=== PATIENT | female | born 1940 | race Caucasian/White ===

== ENCOUNTER 2020-11-14 15:21 | Observation (INO) | payer OTHER, SELFPAY ==
[2020-11-14 17:00] LABS: Absolute Lymphocytes (CBC) 2.5 K/uL (0.7-4.9); Basophils % 0.6 % (0-1.3); Hematocrit 32.2 % (36.0-45.0); Lymphocytes % 30.4 % (15.3-44.8); MPV 7.4 fL (7.6-11.3); RBC Red Blood Cell Count 3.67 M/uL (3.86-4.86)
[2020-11-14 17:13] LABS: ALT/SGPT 14 U/L (12-78); AST/SGOT 13 U/L (15-37); Albumin 3.6 g/dL (3.4-5.0); Alkaline Phosphatase 79 U/L (45-117); BUN Blood Urea Nitrogen 20 mg/dL (7-18); Bicarbonate 28 mmol/L (21-32); Bilirubin Direct < 0.1 mg/dL (0-0.2); Bilirubin Total 0.3 mg/dL (0.2-1.0); Glucose Level 112 mg/dL (74-106); Magnesium 2.4 mg/dL (1.8-2.4); NT PRO-BNP 346 pg/mL (<450); Potassium 4.7 mmol/L (3.5-5.1); Protein, Total 7.4 g/dL (6.4-8.2); Sodium Level 141 mmol/L (136-145); Troponin (Emerg Dept Use Only) < 0.02 ng/mL (0.0-0.045)
[2020-11-14] MEDS ORDERED: FENTANYL CITR 100 MCG/2 ML ONE (17:26)
[2020-11-14] MEDS ORDERED: NA CHLORIDE 0.9% 500 ML ONE (17:26)
[2020-11-14] MEDS ORDERED: ONDANSETRON 4 MG/2 ML VIAL ONE (17:26)
[2020-11-14] MEDS ORDERED: LORazepam 2 MG/ML VIAL ONE (18:09)
--- NOTE | 2020-11-14 18:35 | ER ---
Nurse's Notes [facility] Name: Sasha Asif Age: 79 yrs Sex: Female : 1940 Arrival Date: 11/14/2020 Time: 15:27 Bed 20 Private MD: Diagnosis: Chest pain, unspecified;Acute kidney failure, unspecified Presentation: 11/14 15:35 Chief complaint: Patient states: Pain started in neck area, radiates into chest and ll1 entire back 30 min [employer]. Sudden onset after walking to vehicle. + diaphoresis. Just had some outpatient tests ran. Coronavirus screen: Vaccine status: Patient reports receiving the 1st dose of the Covid vaccine. Client denies travel out of the [place] in the last 14 days. At this time, the client does not indicate any symptoms associated with coronavirus-19. Ebola Screen: Patient denies travel to an Ebola-affected area in the 21 days before illness onset. Initial Sepsis Screen: Does the patient meet any 2 criteria? RR > 20 per min. HR > 90 bpm. Yes Does the patient have a suspected source of infection? No. Patient's initial sepsis screen is negative. Risk Assessment: Do you want to hurt yourself or someone else? Patient reports no desire to harm self or others. Onset of symptoms was November 14, 2020. 15:35 Method Of Arrival: Wheelchair ll1 15:35 Acuity: LIZETTE 2 ll1 Triage Assessment: 15:45 General: Appears distressed, uncomfortable, Behavior is cooperative, appropriate for bp age, anxious. Pain: Complains of pain in chest and neck. EENT: No deficits noted. Neuro: No deficits noted. Cardiovascular: No deficits noted. Reports chest pain. Respiratory: No deficits noted. GI: No signs and/or symptoms were reported involving the gastrointestinal system. : No signs and/or symptoms were reported regarding the genitourinary system. Derm: No deficits noted. Musculoskeletal: No deficits noted. Historical: - Allergies: 15:37 No Known Allergies; ll1 - PMHx: 15:37 Hypertensive disorder; ll1 - Immunization history:: Client reports receiving the Cal \T\ Cal single-dose vaccine. - Social history:: Smoking status: Patient reports the use of cigarette tobacco products, smokes one-half pack cigarettes per day. Screenin:30 Abuse screen: Denies threats or abuse. Denies injuries from another. Nutritional bp screening: No deficits noted. Tuberculosis screening: No symptoms or risk factors identified. Fall Risk None identified. Assessment: 15:45 General: SEE TRIAGE NOTE. bp 17:57 Reassessment: No changes from previously documented assessment. Patient and/or family bp updated on plan of care and expected duration. Pain level reassessed. 18:47 Reassessment: No changes from previously documented assessment. Patient and/or family bp updated on plan of care and expected duration. Pain level reassessed. ADMIT INITIATED Patient states symptoms have improved. Vital Signs: 15:00 BP 106 / 44; Pulse 51; Resp 17; Pulse Ox 100% ; bp 15:35 BP 97 / 42; Pulse 106; Resp 26; Temp 97.4; Pulse Ox 100% on R/A; Weight 49.9 kg; Height ll1 4 ft. 10 in. (147.32 cm); Pain 10/10; 16:00 BP 99 / 57; Pulse 52; Resp 16; Pulse Ox 97% ; bp 17:00 BP 115 / 61; Pulse 58; Resp 17; Pulse Ox 96% ; bp 18:47 BP 131 / 35; Pulse 92; Resp 14; Pulse Ox 95% ; bp 20:51 BP 135 / 99 LA Sitting (auto/reg); Pulse 65; Resp 18; Temp 98.8; Pulse Ox 97% on R/A; sj1 Pain 6/10; 15:35 Body Mass Index 22.99 (49.90 kg, 147.32 cm) ll1 ED Course: 15:27 Patient arrived in ED. ja2 15:30 Patient has correct armband on for positive identification. Bed in low position. Call bp light in reach. Side rails up X2. Adult w/ patient. potline monitor on. Pulse ox on. NIBP on. 15:34 Hermelindo Denney, TALI is Primary Nurse. bp 15:37 Triage completed. ll1 15:38 Arm band placed on Patient placed in an exam room, on a stretcher. ll1 15:49 Harrison Jones PA is PHCP. cp 15:49 Naveed Birmingham MD is Attending Physician. cp 16:25 COVID swab sent to lab. mb4 16:50 Inserted saline lock: 22 gauge in right forearm, using aseptic technique. Blood bp collected. 17:56 XRAY Chest (1 view) In Process Unspecified. EDMS 18:27 CT Chest Wo Con In Process Unspecified. EDMS 18:34 Nadeem Mccall PA is Hospitalizing Provider. cp 20:04 No provider procedures requiring assistance completed. sj1 20:05 Patient maintains SpO2 saturation greater than 95% on room air. sj1 20:23 Leo Ludwig is Hospitalizing Provider. cp Administered Medications: 16:50 Drug: NS 0.9% 500 ml Route: IV; Rate: bolus; Site: right forearm; bp 16:50 Drug: fentaNYL (PF) 25 mcg Route: IVP; Site: right forearm; bp 17:51 Follow up: Response: No adverse reaction bp 16:50 Drug: Zofran (Ondansetron) 4 mg Route: IVP; Site: right forearm; bp 17:51 Follow up: Response: No adverse reaction bp 17:45 Drug: Ativan (LORazepam) 0.5 mg Route: IVP; Site: right forearm; bp 18:48 Follow up: Response: Anxiety decreased bp Outcome: 18:35 Decision to Hospitalize by Provider. cp 21:21 Patient left the ED. sj1 Signatures: Dispatcher [employer] EDMS Harrison Jones PA PA cp Hermelindo Denney, RN RN bp Orquidea Barnard mb4 Amber Wilson, RN RN ll1 Lia Saucedo Sade, RN RN sj1
--- NOTE | 2020-11-14 18:35 | EDPHYS ---
Physician Documentation [facility] Name: Sasha Asif Age: 79 yrs Sex: Female : 1940 Arrival Date: 11/14/2020 Time: 15:27 Bed 20 Private MD: ED Physician Naveed Birmingham HPI: 11/14 16:20 This 79 yrs old Female presents to ER via Wheelchair with complaints of Chest Pain, cp Shortness Of Breath. 16:20 The patient or guardian reports chest pain that is located primarily in the anterior cp chest wall, bilaterally. 16:20 Onset: suddenly, just prior to arrival. The pain radiates to back. The chest pain is cp described as aching. Duration: The patient or guardian reports a single episode, that is still ongoing, and unchanged. Patient reports she was walking to car and started to have sudden pain in neck that moved down to chest and now radiates to back. Historical: - Allergies: 15:37 No Known Allergies; ll1 - PMHx: 15:37 Hypertensive disorder; ll1 - Immunization history:: Client reports receiving the Cal \T\ Cal single-dose vaccine. - Social history:: Smoking status: Patient reports the use of cigarette tobacco products, smokes one-half pack cigarettes per day. ROS: 16:25 Constitutional: Negative for body aches, chills, fever, poor PO intake. cp 16:25 Eyes: Negative for injury, pain, redness, and discharge. cp 16:25 Neck: Positive for pain at rest, Negative for injury or acute deformity. 16:25 Cardiovascular: Positive for chest pain, Negative for edema, palpitations. 16:25 Respiratory: Negative for cough, shortness of breath, wheezing. 16:25 Abdomen/GI: Positive for abdominal pain, Negative for nausea, vomiting, and diarrhea. 16:25 Back: Positive for radiated pain. 16:25 Neuro: Negative for altered mental status, dizziness, headache, numbness, weakness. 16:25 All other systems are negative. Exam: 16:30 Constitutional: The patient appears in no acute distress, alert, awake, cp non-diaphoretic, non-toxic, well developed, well nourished, anxious, uncomfortable. 16:30 Head/Face: Normocephalic, atraumatic. cp 16:30 Eyes: Periorbital structures: appear normal, Conjunctiva: normal, no exudate, no injection, Sclera: no appreciated abnormality, Lids and lashes: appear normal, bilaterally. 16:30 ENT: External ear(s): are unremarkable, Nose: is normal, Mouth: Lips: moist, Oral mucosa: moist, Posterior pharynx: Airway: no evidence of obstruction, patent. 16:30 Neck: ROM/movement: is normal, is supple, no meningismus, no nuchal rigidity, Lymph nodes: no appreciated lymphadenopathy. 16:30 Chest/axilla: Inspection: normal, Palpation: is normal, no crepitus, no tenderness. 16:30 Cardiovascular: Rate: bradycardic, Rhythm: regular, Edema: is not appreciated, JVD: is not appreciated. 16:30 Respiratory: the patient does not display signs of respiratory distress, Respirations: normal, no use of accessory muscles, no retractions, labored breathing, is not present, Breath sounds: are clear throughout, no decreased breath sounds, no stridor, no wheezing. 16:30 Abdomen/GI: Inspection: abdomen appears normal, Bowel sounds: active, all quadrants, Palpation: soft, in all quadrants, mild abdominal tenderness, in all quadrants. 16:30 Back: vertebral tenderness, is not appreciated. 16:30 Skin: cellulitis, is not appreciated, no rash present. 16:30 Neuro: Orientation: to person, place \T\ time. Mentation: is normal, Motor: moves all fours, strength is normal, Sensation: is normal. 17:29 ECG was reviewed by the Attending Physician. cp Vital Signs: 15:00 BP 106 / 44; Pulse 51; Resp 17; Pulse Ox 100% ; bp 15:35 BP 97 / 42; Pulse 106; Resp 26; Temp 97.4; Pulse Ox 100% on R/A; Weight 49.9 kg; Height ll1 4 ft. 10 in. (147.32 cm); Pain 10/10; 16:00 BP 99 / 57; Pulse 52; Resp 16; Pulse Ox 97% ; bp 17:00 BP 115 / 61; Pulse 58; Resp 17; Pulse Ox 96% ; bp 18:47 BP 131 / 35; Pulse 92; Resp 14; Pulse Ox 95% ; bp 20:51 BP 135 / 99 LA Sitting (auto/reg); Pulse 65; Resp 18; Temp 98.8; Pulse Ox 97% on R/A; sj1 Pain 6/10; 15:35 Body Mass Index 22.99 (49.90 kg, 147.32 cm) ll1 MDM: 15:50 Patient medically screened. cp 20:05 Data reviewed: vital signs, nurses notes, lab test result(s), EKG, radiologic studies, cp CT scan, plain films. 11/14 16:00 Order name: Basic Metabolic Panel; Complete Time: 17:20 cp 11/14 17:20 Interpretation: Normal except: GLUC 112; BUN 20; CRE 2.18; GFR 22; CA 8.4. cp 11/14 16:00 Order name: CBC with Diff; Complete Time: 17:42 cp 11/14 20:04 Interpretation: Normal except: RBC 3.67; HGB 10.8; HCT 32.2; RDW 15.8; MPV 7.4. cp 11/14 16:00 Order name: LFT's; Complete Time: 17:20 cp 11/14 16:00 Order name: Magnesium; Complete Time: 17:20 cp 11/14 16:00 Order name: NT PRO-BNP; Complete Time: 17:20 cp 11/14 16:00 Order name: PT-INR; Complete Time: 17:20 cp 11/14 16:00 Order name: Troponin (emerg Dept Use Only); Complete Time: 17:20 cp 11/14 16:00 Order name: XRAY Chest (1 view); Complete Time: 19:57 cp 11/14 16:00 Order name: Urine Microscopic Only cp 11/14 17:31 Order name: SARS-COV-2 RT PCR; Complete Time: 19:57 EDMS 11/14 17:43 Order name: CT Chest Wo Con; Complete Time: 19:57 cp 11/14 20:33 Order name: Urine Dipstick-Ancillary EDMS 11/14 16:00 Order name: EKG; Complete Time: 16:01 cp 11/14 16:00 Order name: Cardiac monitoring; Complete Time: 16:21 cp 11/14 16:00 Order name: EKG - Nurse/Tech; Complete Time: 17:38 cp 11/14 16:00 Order name: IV Saline Lock; Complete Time: 17:10 cp 11/14 16:00 Order name: Labs collected and sent; Complete Time: 17:10 cp 11/14 16:00 Order name: O2 Per Protocol; Complete Time: 16: cp 11/14 16:00 Order name: O2 Sat Monitoring; Complete Time: 16: cp 11/14 19:26 Order name: CONS Physician Consult EDMS EC:29 Rate is 53 beats/min. Rhythm is regular. MS interval is normal. QRS interval is normal. cp QT interval is normal. T waves are Inverted in leads aVL, V2. Interpreted by me. Reviewed by me. Administered Medications: 16:50 Drug: NS 0.9% 500 ml Route: IV; Rate: bolus; Site: right forearm; bp 16:50 Drug: fentaNYL (PF) 25 mcg Route: IVP; Site: right forearm; bp 17:51 Follow up: Response: No adverse reaction bp 16:50 Drug: Zofran (Ondansetron) 4 mg Route: IVP; Site: right forearm; bp 17:51 Follow up: Response: No adverse reaction bp 17:45 Drug: Ativan (LORazepam) 0.5 mg Route: IVP; Site: right forearm; bp 18:48 Follow up: Response: Anxiety decreased bp Disposition: 11/15 08:04 Co-signature as Attending Physician, Naveed Birmingham MD I agree with the assessment and rn plan of care. Attestation: The patient's history, exam findings, diagnostics, and a summary of any interventions or procedures was reviewed in detail with Harrison CHAN. Disposition Summary: 11/14/20 18:35 Hospitalization Ordered Hospitalization Status: Observation cp Location: Telemetry/MedSurg (observation) cp Condition: Stable cp Problem: new cp Symptoms: have improved cp Bed/Room Type: Standard cp Room Assignment: 213(11/14/20 19:58) Provider: Leo Ludwig(11/14/20 20:23) cp Diagnosis - Chest pain, unspecified cp - Acute kidney failure, unspecified cp Forms: - Medication Reconciliation Form cp - SBAR form cp Signatures: Dispatcher [employer] EDDE Delia Blevins RN RN mw Nieto, Roman, MD MD rn Page, Corey, PA PA cp Hermelindo Denney RN RN bp Lewis, Lynsay, RN RN ll1 Corrections: (The following items were deleted from the chart) 10/08 17:25 16:01 Angio Aorta For Dissection+CT.RAD.BRZ ordered. EDMS EDMS 17:31 16:10 CORONAVIRUS+MR.LAB.BRZ ordered. EDMS EDMS 19:58 18:35 cp mw 20:23 18:35 Nadeem Mccall cp cp
--- NOTE | 2020-11-14 18:54 | RAD REPORT ---
EXAM DESCRIPTION: CT - Thorax Wo Con - 11/14/2020 6:28 pm CLINICAL HISTORY: Chest pain COMPARISON: November 14, 2020 chest x-ray TECHNIQUE: Computed axial tomography of the chest was obtained. Contrast was not requested. All CT scans are performed using dose optimization technique as appropriate and may include automated exposure control or mA/KV adjustment according to patient size. FINDINGS: The evaluation of mediastinum, monica and vessels is limited secondary to lack of IV contras t administration. Minimal scarring or subsegmental atelectasis within the left lower lobe. No mediastinal or hilar lymphadenopathy is seen. A pleural effusion is not present. Postsurgical changes involve the chest. Pacemaker leads in place. Thoracoabdominal aortic AP diameter of 3 centimeters. Descending thoracic aorta AP diameter of 3 cent imeters 2.5 centimeter hepatic cyst IMPRESSION: 3 centimeter thoracoabdominal aortic aneurysm
--- NOTE | 2020-11-14 19:26 | RAD REPORT ---
EXAM DESCRIPTION: Malcolm Single View11/14/2020 5:56 pm CLINICAL HISTORY: Chest pain COMPARISON: none FINDINGS: The lungs appear clear of acute infiltrate. The heart is mildly enlarged. Pacemaker leads are in place. IMPRESSION: No acute abnormalities displayed
[2020-11-14 20:33] LABS: Urine Blood Negative (Negative); Urine Glucose Negative (Negative); Urine Protein Trace (Negative); Urine Specific Gravity 1.015 (1.005-1.030)
--- NOTE | 2020-11-14 20:44 | P.HP ---
Certification for Inpatient Patient admitted to: Observation With expected LOS: <2 Midnights Patient will require the following post-hospital care: None Practitioner: I am a practitioner with admitting privileges, knowledge of patient current condition, hospital course, and medical plan of care. Services: Services provided to patient in accordance with Admission requirements found in Title 42 Section 412.3 of the Code of Federal Regulations Patient History Date of Service: 11/14/20 Reason for admission: chest pain History of Present Illness: Ms. Asif is a 79 yo F with bipolar disorder, HTN, history of breast and lung cancer who presents with one day of chest pain and SOB. Today she went to see her oncologist for workup for a new mass on the left side of her neck. On her way back to the car she had sudden 10/10 pain start in her neck and upper chest area. She described this as a burning and tingling feeling that then spread to her back. She reports feeling lightheaded. She denies nausea, vomiting and palpitations. She smokes 1/2 ppd. H/H 10.8. BUN 20, Cr 2.18, GFR 22. CTAP IMPRESSION: 3 centimeter thoracoabdominal aortic aneurysm. Unable to obtain CT dissection due to kidney function. Radiologist instructs to repeat CT in one year. Allergies No Known Allergies Allergy (Unverified 11/14/20 21:09) - Past Medical/Surgical History Diabetic: No -: HTN -: breast cancer -: lung cancer -: bipolar disorder -: mastectomy -: lobectomy Psychosocial/ Personal History: . - Family History Family History: Reviewed- Non-Contributory - Social History Smoking Status: Current every day smoker Alcohol use: Yes CD- Drugs: No Caffeine use: Yes Review of Systems 10-point ROS is otherwise unremarkable Respiratory: Shortness of Breath Cardiovascular: Chest Pain, Light Headedness Musculoskeletal: Neck Pain, Back Pain Physical Examination - Physical Exam General: Alert, In no apparent distress HEENT: Atraumatic, PERRLA, Mucous membr. moist/pink, EOMI, Sclerae nonicteric Neck: Supple, 2+ carotid pulse no bruit, No LAD, Without JVD or thyroid abnormality Respiratory: Diminished Cardiovascular: No edema, Regular rate/rhythm, Normal S1 S2 Capillary refill: <2 Seconds Gastrointestinal: Normal bowel sounds, No tenderness Musculoskeletal: No tenderness Integumentary: No rashes, Other (soft tissue mass on left side of neck) Neurological: Normal speech, Normal strength at 5/5 x4 extr, Normal tone, Normal affect Lymphatics: No axilla or inguinal lymphadenopathy - Studies Laboratory Data (last 24 hrs) 11/14/20 16:40: PT 11.5, INR 1.00 11/14/20 16:40: WBC 8.20, Hgb 10.8 L, Hct 32.2 L, Plt Count 188 11/14/20 16:40: Sodium 141, Potassium 4.7, BUN 20 H, Creatinine 2.18 H, Glucose 112 H, Magnesium 2.4, Total Bilirubin 0.3, AST 13 L, ALT 14, Alkaline Phosphatase 79 Assessment and Plan - Problems (Diagnosis) (1) ANGELITO (acute kidney injury) Current Visit: Yes Status: Acute (2) Anemia Current Visit: Yes Status: Chronic Qualifiers: Anemia type: unspecified type Qualified Code(s): D64.9 - Anemia, unspecified (3) HTN (hypertension) Current Visit: Yes Status: Chronic Qualifiers: Hypertension type: primary hypertension Qualified Code(s): I10 - Essential (primary) hypertension (4) Chest pain Current Visit: Yes Status: Acute Qualifiers: Chest pain type: unspecified Qualified Code(s): R07.9 - Chest pain, unspecified - Plan on tele, cardiology consulted trend troponins, repeat EKG daily ASA, statin BP stable, continue to monitor continue IVF hydration, repeat BMP in the AM, consult nephrology if no imp rovement anemia work up pending reconcile and continue home medications DVT ppx Discharge Plan: Home Plan to discharge in: 24 Hours - Advance Directives Does patient have a Living Will: No Does patient have a Durable POA for Healthcare: Yes - Code Status/Comfort Care Code Status Assessed: Yes (full code ) Critical Care: No Time Spent Managing Pts Care (In Minutes): 70
[2020-11-14 21:11] VITALS: BMI 22.2
[2020-11-14 21:13] LABS: Urine Bacteria <20 /HPF (<20)
[2020-11-14 21:14] LABS: Urine Mucus 1+ /HPF (NONE SEEN)
[2020-11-14] MEDS ORDERED: ACETAMINOPHEN 500 MG TAB PO PRN (21:51)
[2020-11-14] MEDS: CEFTRIAXONE 1 GM/NS 50 ML 1 GM/50 ML BAG IV SCH (21:51)
[2020-11-14] MEDS ORDERED: NA CHLORIDE 0.9% 1,000 ML IV SCH (21:51)
[2020-11-14] MEDS ORDERED: ONDANSETRON 4 MG/2 ML VIAL IV PRN (21:51)
[2020-11-14] MEDS ORDERED: ALBUTEROL 2.5 MG/3 ML NEB SOL NEB PRN (21:51)
[2020-11-14] MEDS ORDERED: NITROGLYCERIN 0.4 MG/TAB SL PRN (21:51)
[2020-11-14] MEDS ORDERED: HYDRALAZINE HCL 20 MG/ML VIAL IV PRN (21:51)
[2020-11-14] MEDS ORDERED: IPRATROPIUM BROM 0.5MG/2.5ML NEB PRN (21:51)
[2020-11-14] MEDS: ATORVASTATIN 40 MG TAB PO SCH (22:34)
[2020-11-14] MEDS ORDERED: NA CHLORIDE 0.9% 50 ML ONE (22:40)
[2020-11-14] MEDS ORDERED: CEFTRIAXONE 1000 MG/VIAL ONE (22:40)
[2020-11-14] MEDS: HYDROCODONE/APAP 5/325 MG TAB PO PRN (22:54)
[2020-11-15] MEDS ORDERED: HEPARIN 5000 UNIT/ML 1 ML VIAL SQ SCH (01:00)
[2020-11-15] MEDS ORDERED: ASPIRIN 81 MG CHEWABLE TABLET PO ONE (05:33)
[2020-11-15] MEDS ORDERED: MORPHINE 4 MG/ML SYR IV PRN (05:44)
[2020-11-15] MEDS: NA CHLORIDE 0.9% 1,000 ML IV SCH ×2 (05:59→10:10)
[2020-11-15] MEDS ORDERED: HEPARIN/D5W 25,000 UNIT/500 ML BAG IV SCH (06:00)
[2020-11-15 06:01] LABS: Albumin 3.1 g/dL (3.4-5.0); Bilirubin Total 0.4 mg/dL (0.2-1.0); Ferritin 41.4 ng/mL (8-388); Folic Acid, (Folate) 11.3 ng/mL (3.1-17.5); Phosphorus 2.2 mg/dL (2.5-4.9); Potassium 4.4 mmol/L (3.5-5.1); Protein, Total 6.6 g/dL (6.4-8.2); Thyroid Stimulating Hormone 3.27 uIU/mL (0.360-3.740)
[2020-11-15] MEDS: METOPROLOL TAR 25 MG TAB PO SCH ×2 (06:17→17:29)
[2020-11-15 06:30] LABS: Protime INR 1.07
[2020-11-15 06:34] LABS: Absolute Lymphocytes (CBC) 1.6 K/uL (0.7-4.9); Basophils % 0.5 % (0-1.3); Hematocrit 31.4 % (36.0-45.0); Lymphocytes % 19.3 % (15.3-44.8); MPV 7.5 fL (7.6-11.3); RBC Red Blood Cell Count 3.59 M/uL (3.86-4.86)
[2020-11-15] MEDS ORDERED: PNEUMOCOCCAL VACCINE 0.5 ML IMVAC ONE (08:00)
[2020-11-15] MEDS ORDERED: INFLUENZA VACCINE (for 6+ mo) 0.5 ML DOSE IMVAC ONE (08:00)
[2020-11-15] MEDS: POTASS/SODIUM PHOSPHATE 1 PKT POWD.PACK PO SCH ×3 (09:00→10:00)
[2020-11-15] MEDS: ASPIRIN EC 81 MG TAB PO SCH (09:41)
[2020-11-15] MEDS: CEFTRIAXONE 1 GM/NS 50 ML 1 GM/50 ML BAG IV SCH (09:42)
[2020-11-15] MEDS: CYANOCOBALAMIN 1,000 MCG TAB PO SCH (09:42)
--- NOTE | 2020-11-15 13:46 | P.PN ---
Subjective Date of Service: 11/15/20 Chief Complaint: chest pain Patient states she feels better. Chest pain resolved. Serum creatinine trended only slightly. She appears very anxious about her neck mass. Physical Examination - Vital Signs Temperature: 97.0 F Blood Pressure: 133/62 Pulse: 65 Respirations: 20 Pulse Ox (%): 94 - Physical Exam General: Alert, In no apparent distress, Oriented x3 HEENT: Mucous membr. moist/pink Neck: JVD not distended Respiratory: Clear to auscultation bilaterally, Normal air movement Cardiovascular: No edema, Regular rate/rhythm, Normal S1 S2 Gastrointestinal: Normal bowel sounds, Soft and benign, Non-distended, No tenderness Musculoskeletal: No swelling Integumentary: No rashes Neurological: Normal strength at 5/5 x4 extr - Studies Laboratory Data (last 24 hrs) 11/14/20 16:40: PT 11.5, INR 1.00 11/14/20 16:40: WBC 8.20, Hgb 10.8 L, Hct 32.2 L, Plt Count 188 11/14/20 16:40: Sodium 141, Potassium 4.7, BUN 20 H, Creatinine 2.18 H, Glucose 112 H, Magnesium 2.4, Total Bilirubin 0.3, AST 13 L, ALT 14, Alkaline Phosphatase 79 Assessment And Plan - Current Problems (Diagnosis) (1) ANGELITO (acute kidney injury) Current Visit: Yes Status: Acute (2) Chest pain Current Visit: Yes Status: Acute Qualifiers: Chest pain type: unspecified Qualified Code(s): R07.9 - Chest pain, unspecified (3) Anemia Current Visit: Yes Status: Chronic Qualifiers: Anemia type: unspecified type Qualified Code(s): D64.9 - Anemia, unspecified (4) HTN (hypertension) Current Visit: Yes Status: Chronic Qualifiers: Hypertension type: primary hypertension Qualified Code(s): I10 - Essential (primary) hypertension (5) Neck mass Current Visit: Yes Status: Acute - Plan Troponin elevated only slightly but trended down with further monitoring. No ACS. Cardiology input appreciated. Stress test and echocardiogram as outpatient. Patient with UTI.. Baseline serum creatinine is unknown. Not sure if patient has ANGELITO or CKD. Continue antibiotics. Hydrate with IV fluid. Further evaluation of neck mass as an outpatient.
--- NOTE | 2020-11-15 16:28 | CON ---
Date of Consultation: 11/15/2020 Reason For Consultation: Chest pain. History Of Present Illness: A 79-year-old female with history of hypertension, breast cancer, status post mastectomy five years ago, presented with chest pain. She said that there was an abnormal find ing of some fatigue on physical exam. The oncologist wants to work up and while on a busy day of try ing to get the test done said she was walking for a long distance and suddenly started to have signif icant pain involving her left side of the chest and upper stomach as well as neck, lasted for few hector rs. Did not have any vomiting. She felt lightheadedness and no other complaints. The patient never known to have any history of cardiac disease, but she smokes half a pack per day for a long time. Past Medical History: Hypertension, breast cancer, and bowel disorder. Medications: Refer to reconciliation sheet for detailed list. Past Surgical History: Mastectomy. Family History: No premature coronary artery disease or cancer. Social History: Half a half a pack per day smoker. Does not drink or use any drugs. Review of Systems: All systems were reviewed and they were negative except for what mentioned in HPI. Physical Examination: Vital Signs: Reviewed. Temperature is 98.1, pulse 60, breathing at 18, blood pressure 135/62, and s aturating at 94%. General: Pleasant elderly female, in no apparent distress. Head and Neck: Pupils are equal and reactive to light. Intact eye movements. No JVD. No cervical lymphadenopathy. Neck is supple. Thyroid is not enlarged. Lungs: Clear to auscultation bilaterally. No rhonchi, rales, or crackles. No accessory muscle use. Heart: Regular rate and rhythm. No extra sounds. Abdomen: Soft, nontender. Bowel sounds positive. No organomegaly. No masses or hernia. No rigidi ty or rebound. Extremities: No edema, clubbing, or cyanosis. Intact pulses. Skin: No rashes. Neurologic: Alert, awake, and oriented x3. No acute focal deficits appreciated. Investigations: Cardiac enzymes, troponin less than 0.02, then 0.05, then less than 0.02 x2, and cre atinine is 2. The EKG without acute specific changes. Assessment And Recommendations: 1.Chest pain. This could be cardiac in origin as it happened while she was walking and radiates to the neck. Please obtain echocardiogram to assess wall motion abnormalities and the patient is curren tly chest pain free. Please start aspirin 81 mg and if she continues to be chest pain free and tropo nins are negative, she will need exercise nuclear stress test, which can be arranged for as an outpat ient. 2.Kidney failure. This appears to be chronic. 3.Urinary tract infection, on antibiotics. Thank you for the consultation. /BLAYNE Voice ID: [id number] Report ID: [id number]
[2020-11-15] MEDS: HYDROCODONE/APAP 5/325 MG TAB PO PRN ×2 (17:26→22:26)
[2020-11-15] MEDS: ATORVASTATIN 40 MG TAB PO SCH (21:36)
[2020-11-16 05:51] LABS: MPV 7.9 fL (7.6-11.3)
[2020-11-16 06:04] LABS: Phosphorus 2.4 mg/dL (2.5-4.9); Potassium 3.7 mmol/L (3.5-5.1)
[2020-11-16] MEDS: METOPROLOL TAR 25 MG TAB PO SCH (06:13)
[2020-11-16] MEDS: POTASS/SODIUM PHOSPHATE 1 PKT POWD.PACK PO SCH ×3 (08:00→09:38)
[2020-11-16] MEDS: NA CHLORIDE 0.9% 1,000 ML IV SCH (08:39)
[2020-11-16] MEDS: CEFTRIAXONE 1 GM/NS 50 ML 1 GM/50 ML BAG IV SCH ×2 (09:00→09:39)
[2020-11-16] MEDS ORDERED: POTASSIUM CL SA 10 MEQ TAB PO ONE (09:00)
[2020-11-16] MEDS: CYANOCOBALAMIN 1,000 MCG TAB PO SCH (09:38)
[2020-11-16] MEDS: ASPIRIN EC 81 MG TAB PO SCH (09:38)
[2020-11-16] MEDS: HYDROCODONE/APAP 5/325 MG TAB PO PRN (09:57)
[2020-11-16 10:44] VITALS: O2SAT 93
--- NOTE | 2020-11-16 11:36 | P.DS ---
Admission Date: 11/14/20 Discharge Date: 11/16/20 Disposition: ROUTINE DISCHARGE Discharge Condition: FAIR Reason for Admission: chest pain - Problems (1) ANGELITO (acute kidney injury) Current Visit: Yes Status: Acute (2) Chest pain Current Visit: Yes Status: Acute Qualifiers: Chest pain type: unspecified Qualified Code(s): R07.9 - Chest pain, unspecified (3) Anemia Current Visit: Yes Status: Chronic Qualifiers: Anemia type: unspecified type Qualified Code(s): D64.9 - Anemia, unspecified (4) HTN (hypertension) Current Visit: Yes Status: Chronic Qualifiers: Hypertension type: primary hypertension Qualified Code(s): I10 - Essential (primary) hypertension (5) Neck mass Current Visit: Yes Status: Acute Brief History of Present Illness: 79 yo F with bipolar disorder, HTN, history of breast and lung cancer presented with chest pain and SOB. She went to see her oncologist for workup for a new mass on the left side of her neck who ordered imaging for her to do. On her way back to the car she had sudden 10/10 pain start in her neck and upper chest area. She described it as a burning and tingling feeling that spread to her back. She also reported feeling lightheaded. She smokes 1/2 ppd. H/H 10.8. BUN 20, Cr 2.18, GFR 22. Chest x-ray unremarkable. CTA thorax demonstrated 3 cm thoracoabdominal aortic aneurysm. Patient diagnosed with chest pain, acute renal failure and hospitalized for further evaluation and management. Hospital Course: Patient placed under observation. Troponin trended slightly to 0.05. EKG showed no ischemic changes. Patient was briefly on heparin drip. Troponin trended down and was negative with monitoring. Patient hydrated with IV fluids for acute renal failure. Serum creatinine trended down to 1.6. She was seen and evaluated by cardiology who recommended stress test and echocardiogram as outpatient. UA suggested the presence of UTI. Patient treated with IV Rocephin. Preliminary urine culture shows coagulase negative Staph which could be a skin contaminant. ACS has been ruled out. Patient has a neck mass which need to be further evaluated as an outpatient. She is deemed stable for discharge. Please see the medication reconciliation below for new medications prescribed on discharge. Vital Signs/Physical Exam: Temp Pulse Resp BP Pulse Ox 97 F 67 17 185/75 H 96 10/10/21 08:00 11/16/20 08:00 11/16/20 08:00 11/16/20 08:00 11/16/20 08:00 General: Alert, In no apparent distress, Oriented x3 HEENT: Mucous membr. moist/pink Neck: JVD not distended Respiratory: Clear to auscultation bilaterally, Normal air movement Cardiovascular: Regular rate/rhythm, Normal S1 S2 Gastrointestinal: Normal bowel sounds, Soft and benign, Non-distended Musculoskeletal: No swelling Integumentary: No rashes Neurological: Normal speech, Normal strength at 5/5 x4 extr Laboratory Data at Discharge: WBC 8.50 K/uL (4.3-10.9) 11/15/20 06:02 Hgb 10.3 g/dL (12.0-15.0) L 11/15/20 06:02 Hct 31.4 % (36.0-45.0) L 11/15/20 06:02 Plt Count 163 K/uL (152-406) 11/16/20 05:18 PT 12.3 SECONDS (9.5-12.5) 11/15/20 05:57 INR 1.07 11/15/20 05:57 APTT Cancelled 11/15/20 10:50 Sodium 142 mmol/L (136-145) 11/16/20 05:18 Potassium 3.7 mmol/L (3.5-5.1) 11/16/20 05:18 BUN 20 mg/dL (7-18) H 11/16/20 05:18 Creatinine 1.63 mg/dL (0.55-1.3) H 11/16/20 05:18 Glucose 85 mg/dL (74-106) 11/16/20 05:18 Phosphorus 2.4 mg/dL (2.5-4.9) L 11/16/20 05:18 Magnesium 2.0 mg/dL (1.8-2.4) 11/15/20 03:36 Total Bilirubin 0.4 mg/dL (0.2-1.0) 11/15/20 03:36 AST 12 U/L (15-37) L 11/15/20 03:36 ALT 11 U/L (12-78) L 11/15/20 03:36 Alkaline Phosphatase 70 U/L (45-117) 11/15/20 03:36 Troponin I < 0.02 ng/mL (0.0-0.045) 11/15/20 15:37 Triglycerides 146 mg/dL (<150) 11/15/20 03:36 Cholesterol 179 mg/dL (<200) 11/15/20 03:36 HDL Cholesterol 41 mg/dL (40-60) 11/15/20 03:36 Cholesterol/HDL Ratio 4.37 11/15/20 03:36 Home Medications: Alendronate Sodium 70 mg PO EVERY 7TH DAY 11/16/20 Aspirin [Aspirin EC] 81 mg PO DAILY #30 tablet. 11/16/20 Atorvastatin Calcium [Lipitor] 40 mg PO BEDTIME #30 tab 11/16/20 Cholecalciferol (Vitamin D3) [Vitamin D 5,000 IU Cap*] 5,000 unit PO EVERY 7TH DAY 11/16/20 Cyanocobalamin [Vitamin B-12*] 1,000 mcg PO DAILY #30 tab 11/16/20 Hydrocodone/Acetaminophen [Hydrocodone-Acetamin 10-325 mg] 1 tab PO Q6H PRN 11/16/20 Letrozole [Femara*] 2.5 mg PO DAILY 11/16/20 Lisinopril [Zestril] 40 mg PO DAILY 11/16/20 Metoprolol Tartrate [Lopressor*] 25 mg PO BID 6AM 6PM #60 tab 11/16/20 Mirtazapine 45 mg PO BEDTIME 11/16/20 Pregabalin [Lyrica*] 50 mg PO QID 11/16/20 carvediloL [Carvedilol] 6.25 mg PO BID 11/16/20 New Medications: Aspirin [Aspirin EC] 81 mg PO DAILY #30 tablet. Atorvastatin Calcium [Lipitor] 40 mg PO BEDTIME #30 tab Metoprolol Tartrate [Lopressor*] 25 mg PO BID 6AM 6PM #60 tab Cyanocobalamin [Vitamin B-12*] 1,000 mcg PO DAILY #30 tab Diet: AHA Activity: Ad rudi Followup: Stephon Moss MD [ACTIVE - CAN ADMIT] - 1 Week (For arrangement for stress test and echocardiogram.) Linda Vazquez DO [Primary Care Provider] - 1 Week
[2020-11-16 13:24] VITALS: BP 181/76; TEMP 98
== END 2020-11-16 13:58 | disposition home or self-care (01) ==
LOC: ER 15:21 → EDBD 15:21 → 2ND 19:25
PROVIDERS: ADMIT Internal Medicine; ATTEND Internal Medicine
DX: R07.9 Chest pain, unspecified (principal); N17.9 Acute kidney failure, unspecified; N39.0 Urinary tract infection, site not specified; R22.1 Localized swelling, mass and lump, neck; I10 Essential (primary) hypertension; D64.9 Anemia, unspecified; I71.6 Thoracoabdominal aortic aneurysm, without rupture; F31.9 Bipolar disorder, unspecified; F17.210 Nicotine dependence, cigarettes, uncomplicated; Z85.3 Personal history of malignant neoplasm of breast; Z85.118 Personal history of other malignant neoplasm of bronchus and lung; Z90.10 Acquired absence of unspecified breast and nipple; Z20.822 Contact with and (suspected) exposure to COVID-19
CPT/HCPCS: 93005; 87088; 85025 ×2; 87086; 80048 ×2; 36415 ×2; 83735 ×2; 84100 ×2; 85049; 85610 ×2; 80061; 80076; 85730; 84443; 87077; 87186; 84484 ×6; 84439; 82728; 82746; 82607; 83540; 80053; 83880 ×2; 84466; 71250; 71045; 94760 ×4; 96375; 96374; 99285; U0003; J0360; J1644 ×3; J3010; J7040; J7030 ×3; J0696 ×2; J2405; G0378 ×3; 81003; 81015

== ENCOUNTER 2021-01-19 20:44 | Emergency (ER) | payer OTHER ==
--- OUTSIDE RECORDS SUMMARY | 2021-01-19 21:02 | XMS REPORT | Continuity of Care Document ---
:1940 Author Organization [facility] t Address [address] [place] [address] Care Team Providers Name Role Phone DR JB Attending Clinician Unavailable DR JB Admitting Clinician Unavailable Problems This patient has no known problems. Allergies, Adverse Reactions, Alerts This patient has no known allergies or adverse reactions. Medications Ordered Filled Start Stop Current Ordering Indication Dosage Frequency Signature Comments Components Source Medication Medication Date Date Medication? Clinician (SIG) Name Name Lisinopril Lisinopril 2019-0 Yes Na Vazquez [address] [facility] ProAir HFA ProAir HFA Yes Na Vazquez [address] [facility] BusPIRone BusPIRone Yes Na Vazquez [address] [facility] HCl HCl [facility] [place] Yes Na [facility]azquez [address] [facility] Gabapentin Gabapentin Yes Na Vazquez [address] [facility] before [facility] Mirtazapine Mirtazapine Yes Na Vazquez [address] [facility] bedtime [facility] Vitamin D3 Vitamin D3 Yes Na Vazquez [address] [facility] Arimidex Arimidex Yes Na Vazquez [address] [facility] Alendronate Alendronate Yes Na Vazquez [address] [facility] Sodium Sodium [facility] Levothyroxi Levothyroxi Yes Na Vazquez TAKE [address] [facility] ne Sodium ne Sodium TABLET BY [facility] MOUTH [facility] EVERY DAY l ON EMPTY Outpati STOMACH IN ent THE Clinics MORNING Levothyroxi Levothyroxi Yes Na Vazquez [address] [facility] ne Sodium ne Sodium on an [facility] - empty [facility] stomach in l the [facility] morning ent Clinics Immunizations Ordered Filled Immunization Date Status Comments [facility] e Immunization Name Name Charisma Zafar 2018-10-[address] [facility] Procedures This patient has no known procedures. Encounters Start End Encounter Admission Attending Care Care Encounter Source Date/Time Date/Time Type Type Clinicians Facility Department ID 2020-12-15 2020-12-15 amb[facility] [id number] [facility] 2020-11-28 2020-11-28 [facility] [id number] [facility] 2020-11-24 2020-11-24 [facility] [id number] [facility] 2020-10-31 2020-10-31 [facility] [id number] [facility] 2020-10-31 2020-10-31 [facility] [id number] [facility] 2020-09-17 2020-09-17 [facility] [id number] [facility] 2020-08-25 2020-08-25 [facility] [id number] [facility] 2020-07-30 2020-07-30 [facility] [id number] [facility] 2020-07-24 2020-07-24 Out[facility] [id number] [facility] 2020-06-27 2020-06-27 Out[facility] [id number] [facility] 2020-04-17 2020-04-17 Out[facility] [id number] [facility] 2020-04-08 2020-04-08 Out[facility] [id number] [facility] 2020-01-17 2020-01-17 Out[facility] [id number] [facility] 2019-12-07 2019-12-07 Out[facility] [id number] [facility] 2019-10-19 2019-10-19 [facility] [id number] [facility] 14:00:00 14:00:00 [facility] [place] [employer] s - Drive [facility] 2019-10-19 2019-10-19 [facility] [id number] [facility] 14:00:00 14:00:00 [facility] [place] [employer] [facility] - Drive [facility] Clin[facility] 2019-06-25 2019-06-25 [facility] [id number] [facility] 13:00:00 13:00:00 t [place] [employer] [facility] - Drive [facility] Medicine Out[facility] Clinics 2019-03-19 2019-03-19 [facility] [id number] [facility] 16:00:00 16:00:00 t [place] [employer] s - Drive [facility] Medicine Out[facility] Clinics 2018-10-31 2018-10-31 [facility] [id number] [facility] 16:20:00 16:20:00 t [place] [employer] - Drive [facility] l Medicine Outpat[facility] ent Clinics 2018-10-11 2018-10-11 [facility] [id number] 10:14:00 10:14:[address] [place] [facility] - [address] [facility] Medicine l Medicine Outpati ent Clinics 2018-10-10 2018-10-10 [facility] [id number] 15:45:00 15:45:00 t [place] [employer] [place] [facility] - Drive [facility] Medicine l Medicine Outpati ent Clinics 2018-04-11 2018-04-11 [facility] [id number] [facility] 14:00:00 14:00:00 t [place] [employer] [place] [facility] - Drive [facility] Medicine l Medicine Outpati ent Clinics 2018-01-11 2018-01-11 [facility] [id number] [facility] 14:15:00 14:15:00 t [place] [employer] - Drive [facility] Medicine l Medicine Outpati ent Clinics 2017-11-11 2017-11-11 [facility] [id number] [facility] 14:51:00 14:51:00 t [place] [employer] [place] [facility] - Drive [facility] Medicine l Medicine Outpati ent Clinics 2017-11-02 2017-11-02 [facility] [id number] [facility] 11:00:00 11:00:00 t [place] [employer] - Drive [facility] Medicine l Medicine Outpati ent Clinics 2017-10-26 2017-10-26 [facility] [id number] [facility] 15:29:00 15:29:00 t [place] [employer] [place] [facility] - Drive [facility] Medicine l Medicine Outpati ent Clinics 2017-10-12 2017-10-12 [facility] [id number] 15:00:00 15:00:00 t [place] [employer] - Drive [facility] Medicine l Medicine Outpati ent Clinics 2017-08-01 2017-08-01 [facility] [id number] 15:15:00 15:15:00 t [place] [employer] [place] [facility] - Drive [facility] Medicine l Medicine Outpati ent Clinics 2017-07-06 2017-07-06 [facility] [id number] 16:22:00 16:22:00 [facility] 2017-06-07 2017-06-07 Outpatient Humberto Pault [id number] 15:15:00 15:15:00 [facility] Results Test Description Test Time Test Comments Results Result Comments Source URINE CULTURE 2016-11-08 09:23:00 Test Item Value Reference Range Interpretation Comme nts Isolate 1 (test code = ISO1) Escherichia coli A ampicillin (test code = am) ug/mL S ampicillin/sulbactam (test code = ams) ug/mL S piperacillin/tazobactam (test code = tzp) ug/mL S cefazolin (test code = cz) ug/mL S ceftazidime (test code = brenda) ug/mL S ceftriaxone1 (test code = ctr) ug/mL S cefepime (test code = fep) ug/mL S aztreonam (test code = azm) ug/mL S ertapenem (test code = etp) ug/mL S meropenem (test code = mem) ug/mL S gentamicin (test code = gm) ug/mL S tobramycin (test code = tob) ug/mL S levofloxacin (test code = lev) ug/mL S trimethoprim/sulfamethoxazole (test code = sxt) ug/mL S LIVER [id number] 04:51:00 Test Item Value Reference Range Interpretation Comments BILI TOTAL (test code 0.4 mg/dL 0.2-1.0 = 11A) BILI DIRCT (test code <0.1 mg/dL 0.0-0.2 Unabl e to calculate = 12A) Indirect Bili d ue to low test result s PROTEIN (test code = 8.1 g/dL 6.4-8.2 07D) ALBUMIN (test code = 4.0 g/dL 3.5-4.8 08D) GLOBULIN (test code = 4.1 g/dL 1.5-3.8 H GLB) ALB/GLOB (test code = 1.0 1.0-2.6 AGRR) ALK PHOS (test code = 78 IU/L 42-121 35A) AST (test code = 30A) 20 IU/L <=42 ALT (test code = 31A) 14 IU/L <=78 [id number] 04:49:00 Test Item Value Reference Range Interpretation Comments ACETAMINPH (test code = 94M) <2.0 ug/mL 10.0-30.0 L ALCOHOL BLOOD (ETOH)2016-11-06 04:44:00 Test Item Value Reference Range Interpretation Comments ALCOHOL (test code = <10 mg/dL <=10 56A) Ref Range Change (test Please note the code = REF RANGE) change in reference range CARDIAC [id number] 04:43:00 Test Item Value Reference Range Interpretation Comments TROPONIN I (test code = A84) <0.015 ng/mL 0.000-0.045 CKMB (test code = A49) <1.0 ng/mL <=3.6 CPK (test code = 32A) 78 IU/L 26-192 DRUGS OF [id number] 04:39:00 Test Item Value Reference Range Interpretation Comments DRUG SCRN (test code URINE DRUG SCREEN = HDOA) This is an unconfirmed screening result and should not be used for non-medical purposes CANNABINOD (test code Negative NEGATIVE = 88C) AMPHETAMINE (test Negative NEGATIVE code = 84A) BENZODIAZP (test code Negative NEGATIVE = 86A) BARBITURAT (test code Negative NEGATIVE = 85A) OPIATES (test code = POSITIVE NEGATIVE A 92B) COCAINE (test code = Negative NEGATIVE 87A) PHENCYCLID (test code Negative NEGATIVE = 66A) METHADONE (test code Negative NEGATIVE = 64A) DOAH (test code = DOAH) *URINE DRUG SCREEN Cut-off values are as follows: Cannabinoids 50 ng/mL Cocaine 300 ng/mL Amphetamines 1000 ng/mL Phencyclidine 25 ng/mL Benzodiazepines 200 ng.mL Methadone 300 ng/mL Barbiturates 200 ng/mL Opiates 2000 ng/mL BASIC METABOLIC [id number] 04:39:00 Test Item Value Reference Range Interpretation Comments GLUCOSE (test code = 06D) 104 mg/dL 75-100 H SODIUM (test code = 01A) 134 mmol/L 136-145 L POTASSIUM (test code = 01B) 4.2 mmol/L 3.6-5.1 CHLORIDE (test code = 04A) 99 mmol/L 98-107 CO2 (test code = 02A) 25 mmol/L 22-32 ANION GAP (test code = ANG) 14.2 mmol/L BUN (test code = 05D) 7 mg/dL 7-18 CREATININE (test code = 03E) 1.3 mg/dL 0.4-1.1 H BUN/CREA (test code = BCR) 5 12-20 L CALCIUM (test code = 09D) 9.2 mg/dL 8.3-9.5 URINALYSIS WITH [id number] 04:37:00 Test Item Value Reference Range Interpretation Comments COLOR (test code = COLU) YELLOW YELLOW CLARITY (test code = CLA) SLT HAZY CLEAR A GLUCOSE UR (test code = UA NEGATIVE NEGATIVE GLUCOSE) BILI UR (test code = BILE) NEGATIVE NEGATIVE KETONES UR (test code = EVANGELISTA) NEGATIVE NEGATIVE SP GRAVITY (test code = SPGR) 1.020 1.005-1.030 PH UR (test code = PH) 6.0 4.5-8.0 PROTEIN UR (test code = PU) TRACE NEGATIVE A UROBIL UR (test code = UROQ) 0.2 EU/dL 0.2-1.0 NITRITE UR (test code = POSITIVE NEGATIVE A NITRITE) BLOOD UR (test code = UA BLOOD) NEGATIVE NEGATIVE LEUK ES UR (test code = LEUK) 2+ NEGATIVE A WBC UR (test code = UWBC) 20 /HPF 0-5 H RBC UR (test code = URBC) 0 /HPF 0-2 EPITH UR (test code = UEPC) MODERATE /LPF FEW A BACTERIA UR (test code = UBACT) MANY /HPF NONE A CAST UR (test code = CAST) /LPF NONE CRYSTAL UR (test code = CRYU) / LPF NONE MUCUS UR (test code = MUC) / HPF NONE AMORPH UR (test code = LISANDRO) / HPF NONE TRICH UR (test code = UTRICH) /HPF NONE YEAST UR (test code = UY) /HPF NONE SPERM UR (test code = USPERM) /HPF NONE [id number] 04:37:00 Test Item Value Reference Range Interpretation Comments SALICYLATE (test code = 94B) 5.6 mg/dL 2.8-20.0 PRO TIME AND [id number] 04:28:00 Test Item Value Reference Range Interpretation Comments PT (test code = 11.1 s 9.8-13.6 TT) INR (test code = 1.0 INR) INRH (test code = SUGGESTED INRH) THERAPEUTIC RANGE FOR INR: 2.5 - 3.5 For Patients with Prosthetic Valves or Patients with recurrent Thromboembolic Events 2.0 - 3.0 For Most Other Applications PTT (test code = 28.1 s 20.2-38.0 PTT) PTTH (test code = To monitor the PTTH) effectiveness of heparin, we offer the Anti-Xa (Heparin Assay). It can be used for either unfractionated or LMW Heparin. Order Code is ANTI-XA CBC (INCLUDES AUTOMATED DIFFERENTIAL)2016-11-06 04:23:00 Test Item Value Reference Range Interpretation Comments WBC (test code = WBC) 9.7 10\S\3/uL 4.5-11.0 RBC (test code = RBC) 4.46 10\S\6/uL 3.80-5.80 HGB (test code = HBG) 12.9 g/dL 12.0-15.5 HCT (test code = HCT) 39.4 % 35.0-44.0 MCV (test code = MCV) 88.3 fL 81.0-99.0 MCH (test code = MCH) 28.9 pg 27.0-31.0 MCHC (test code = MCHC) 32.7 g/dL 32.0-36.0 RDW (test code = RDW) 14.7 % 11.5-14.5 H PLT (test code = PLT) 220 10\S\3/uL 130-400 MPV (test code = MPV) 9.2 fL 9.4-12.4 L NEUTROP # (test code = NE#) 5.1 10\S\3/uL 1.6-8.0 LYMPH # (test code = LY#) 3.5 10\S\3/uL 1.1-3.5 MONOCYTE # (test code = MO#) 0.8 10\S\3/uL 0.0-1.1 EOSINOPH # (test code = EO#) 0.3 10\S\3/uL 0.0-0.7 BASOPHIL # (test code = BA#) 0.1 10\S\3/uL 0.0-0.3 IG # (test code = IG#) 0.02 10\S\3/uL 0.00-0.06 NRBC # (test code = NRBC#) 0.00 10\S\3/uL 0.00-0.01 NEUTROPH % (test code = NE%) 52.3 % 35.0-73.0 LYMPH % (test code = LY%) 36.3 % 20.0-55.0 MONO % (test code = MO%) 7.8 % 2.5-10.0 EOSINOPH % (test code = EO%) 2.8 % 0.0-5.0 BASOPHIL % (test code = BA%) 0.6 % 0.0-2.0 IG % (test code = IG%) 0.2 % 0.0-0.8 NRBC% (test code = NRBC%) 0.0 % 0.0-0.2 MANDIFF (test code = MDIFF) NO NO RBC MORPH (test code = RBCMOR) NORMAL
[2021-01-19 23:42] LABS: Protime INR 1.08
[2021-01-19 23:45] LABS: Absolute Lymphocytes (CBC) 2.9 K/uL (0.7-4.9); Basophils % 1.1 % (0-1.3); Hematocrit 26.6 % (36.0-45.0); Lymphocytes % 31.6 % (15.3-44.8); RBC Red Blood Cell Count 3.23 M/uL (3.86-4.86)
[2021-01-19 23:57] LABS: ALT/SGPT 14 U/L (12-78); AST/SGOT 15 U/L (15-37); Albumin 2.6 g/dL (3.4-5.0); Alkaline Phosphatase 95 U/L (45-117); BUN Blood Urea Nitrogen 21 mg/dL (7-18); Bicarbonate 26 mmol/L (21-32); Bilirubin Direct < 0.1 mg/dL (0-0.2); Bilirubin Total 0.3 mg/dL (0.2-1.0); Glucose Level 108 mg/dL (74-106); Magnesium 2.4 mg/dL (1.8-2.4); NT PRO-BNP 596 pg/mL (<450); Potassium 4.5 mmol/L (3.5-5.1); Protein, Total 7.5 g/dL (6.4-8.2); Sodium Level 134 mmol/L (136-145); Troponin (Emerg Dept Use Only) < 0.02 ng/mL (0.0-0.045)
[2021-01-20] MEDS ORDERED: LIDOCAINE 1% MPF 5 ML VIAL ONE ×2 (02:00→02:10)
--- NOTE | 2021-01-20 03:40 | EDPHYS ---
Physician Documentation [facility] Name: Sasha Asif Age: 80 yrs Sex: Female : 1940 Arrival Date: 01/19/2021 Time: 20:46 Bed 6 Private MD: Linda Vazquez ED Physician Harrison Ramirez HPI: 01/19 22:34 This 80 yrs old Female presents to ER via Ambulatory with complaints of Weakness, Back jr8 Pain, unable to cough. 22:34 This is a 80-year-old female patient that presented to the emergency room with jr8 complaints of mid back pain, trouble coughing, trouble swallowing. Denies flulike symptoms or trauma. Patient stated that this has been going on for approximately 1 week without any improvement. Feels that her voice sounds different as well.. Historical: - Allergies: 01/20 00:12 No Known Allergies; lp1 - Home Meds: 00:12 hydrocodone [Active]; Lyrica Oral [Active]; Mirtazapine Oral [Active]; Lisinopril Oral lp1 [Active]; "cancer pill" [Active]; - PMHx: 01/19 21:08 breast cancer; da3 01/20 00:12 Hypertensive disorder; lung cancer; lp1 - PSHx: 01/19 21:08 lung lopectomy; da3 01/20 00:12 Pacemaker (non-functional); bilateral mastectomy; lp1 - Immunization history:: Client reports receiving the 2nd dose of the Covid vaccine. - Social history:: Smoking status: Patient reports the use of cigarette tobacco products, smokes one pack cigarettes per day. ROS: 01/19 22:34 Eyes: Negative for injury, pain, redness, and discharge. jr8 Neck: Negative for injury, pain, and swelling, Cardiovascular: Negative for chest pain, palpitations, and edema, Abdomen/GI: Negative for abdominal pain, nausea, vomiting, diarrhea, and constipation, MS/Extremity: Negative for injury and deformity, Skin: Negative for injury, rash, and discoloration. Neuro: Negative for headache, weakness, numbness, tingling, and seizure. ENT: Positive for difficulty swallowing. Respiratory: Positive for dyspnea on exertion, Negative for cough, shortness of breath, sputum production, wheezing. Back: Positive for pain at rest, of the left subscapular area, right subscapular area, left mid back and right mid back. Exam: 22:34 Constitutional: This is a well developed, well nourished patient who is awake, alert, jr8 and in no acute distress. Eyes: Pupils equal round and reactive to light, extra-ocular motions intact. Lids and lashes normal. Conjunctiva and sclera are non-icteric and not injected. Cornea within normal limits. Periorbital areas with no swelling, redness, or edema. ENT: Nares patent. No nasal discharge, no septal abnormalities noted. Tympanic membranes are normal and external auditory canals are clear. Oropharynx with no redness, swelling, or masses, exudates, or evidence of obstruction, uvula midline. Mucous membranes moist. Neck: Trachea midline, no thyromegaly or masses palpated, and no cervical lymphadenopathy. Supple, full range of motion without nuchal rigidity, or vertebral point tenderness. No Meningismus. Cardiovascular: Regular rate and rhythm with a normal S1 and S2. No gallops, murmurs, or rubs. Normal PMI, no JVD. No pulse deficits. Respiratory: Lungs have equal breath sounds bilaterally, clear to auscultation and percussion. No rales, rhonchi or wheezes noted. No increased work of breathing, no retractions or nasal flaring. Abdomen/GI: Soft, non-tender, with normal bowel sounds. No distension or tympany. No guarding or rebound. No evidence of tenderness throughout. Back: No spinal tenderness. No costovertebral tenderness. Full range of motion. Skin: Warm, dry with normal turgor. Normal color with no rashes, no lesions, and no evidence of cellulitis. MS/ Extremity: Pulses equal, no cyanosis. Neurovascular intact. Full, normal range of motion. Neuro: Awake and alert, GCS 15, oriented to person, place, time, and situation. Cranial nerves II-XII grossly intact. Motor strength 5/5 in all extremities. Sensory grossly intact. Cerebellar exam normal. Normal gait. Vital Signs: 21:04 BP 161 / 99; Pulse 102; Resp 22; Temp 97.6; Pulse Ox 100% on R/A; Weight 46.72 kg; da3 Height 4 ft. 10 in. (147.32 cm); 22:33 BP 168 / 93; Pulse 92; Pulse Ox 100% on R/A; tw5 01/20 05:03 BP 138 / 59; Pulse 76; Resp 18; Pulse Ox 98% on R/A; tw5 01/19 21:04 Body Mass Index 21.53 (46.72 kg, 147.32 cm) da3 NIH Stroke Scale Scores: 01/19 22:33 NIHSS Score: 0 tw5 MDM: 21:55 Patient medically screened. [facility] 01/20 03:35 Data reviewed: vital signs, nurses notes, lab test result(s), EKG, radiologic studies, main CT scan, plain films. Data interpreted: lease attendant: rate is 22 beats/min, rhythm is regular, Pulse oximetry: on room air is 100 %. Test interpretation: by ED physician or midlevel provider: ECG, plain radiologic studies. Counseling: I had a detailed discussion with the patient and/or guardian regarding: the historical points, exam findings, and any diagnostic results supporting the discharge/admit diagnosis, lab results, radiology results. 01/19 22:10 Order name: Basic Metabolic Panel; Complete Time: 23:57 [facility] 01/19 22:10 Order name: CBC with Diff; Complete Time: 23:57 [facility] 01/19 22:10 Order name: LFT's; Complete Time: 23:57 [facility] 01/19 22:10 Order name: Magnesium; Complete Time: 23:57 [facility] 01/19 22:10 Order name: NT PRO-BNP; Complete Time: 23:57 [facility] 01/19 22:10 Order name: PT-INR; Complete Time: 23:43 [facility] 01/19 22:10 Order name: Troponin (emerg Dept Use Only); Complete Time: 23:57 [facility] 01/19 22:10 Order name: XRAY Chest Pa And Lat (2 Views) [facility] 01/19 22:10 Order name: CT Head C Spine [facility] 01/19 22:12 Order name: COVID-19 SARS RT PCR (Document "Date of Onset" if Symptomatic); Complete [facility] Time: 23:33 01/19 23:58 Order name: CT Aorta for Dissection [facility] 01/19 22:10 Order name: EKG; Complete Time: 22:11 [facility] 01/19 22:10 Order name: Cardiac monitoring; Complete Time: 22:18 [facility] 01/19 22:10 Order name: EKG - Nurse/Tech; Complete Time: 22:18 01/19 22:10 Order name: IV Saline Lock; Complete Time: :33 01/19 22:10 Order name: Labs collected and sent; Complete Time: 00:27 01/19 22:10 Order name: O2 Per Protocol; Complete Time: 22:18 01/19 22:10 Order name: O2 Sat Monitoring; Complete Time: : Administered Medications: 01:20 Not Given (Patient Refused; patient states IV hurts, refuses new IVv): NS 0.9% 500 ml tw5 IV at bolus once 02:00 Drug: Lidocaine (1 %) 5 mg {Note: by Bo DICKERSON} Route: Infiltration; tw 03:36 Follow up: Response: No adverse reaction tw5 04:04 Drug: Labetalol 10 mg Route: IVP; Site: right antecubital; tw5 04:04 Drug: Labetalol 100 mg Route: PO; tw5 05:02 Drug: Labetalol 10 mg Route: IVP; Infused Over: 2 mins; Site: right antecubital; tw5 Disposition: 03:35 Co-signature as Attending Physician, Harrison Ramirez MD I agree with the assessment and main plan of care. Disposition Summary: 01/20/21 03:40 Transfer Ordered Transfer Location: [facility] main Reason: Higher level of care main Condition: Fair main Problem: new main Symptoms: have improved main Accepting Physician: to thoracic surgery(01/20/21 06:29) tw5 Diagnosis - Essential (primary) hypertension main - Dysphasia main - Unspecified kidney failure main - Aortic aneurysm of unspecified site, without rupture(01/20/21 05:35) main Forms: - Medication Reconciliation Form main - SBAR form main NIH Stroke Scale - NIH Stroke Score Date: 01/19/2021 Time: 22:33 Total Score = 0 1a. Level of Consciousness (LOC) - 0(Alert) 1b. Level of Consciousness (LOC) (Month \\T\\ Age) - 0(Both) 1c. LOC Commands (Open \\T\\ Closes Eyes/Timber Killer) - 0(Both) 2. Best Gaze (Lateral Gaze Paresis) - 0(Normal) 3. Visual Field Loss - 0(No visual loss) 4. Facial Palsy - 0(Normal) 5a. Left Arm: Motor (10-second hold) - 0(No drift) 5b. Right Arm: Motor (10-second hold) - 0(No drift) 6a. Left Leg: Motor (5-second hold - always test supine) - 0(No drift) 6b. Right Leg: Motor (5-second hold - always test supine) - 0(No drift) 7. Limb Ataxia (finger/nose \\T\\ heel/quarles - test with eyes open) - 0(Absent) 8. Sensory Loss (pinprick arms/legs/face) - 0(Normal) 9. Best Language: Aphasia (description/naming/reading) - 0(No aphasia) 10. Dysarthria (speech clarity - read or repeat words) - 0(Normal) 11. Extinction and Inattention (visual/tactile/auditory/spatial/personal) - 0(No abnormality) Initials: tw5 Signatures: Dispatcher [employer] EDHarrison King MD MD cha Pena, Laura RN RN lp1 Bo Woodward PA PA jr8 Nikolas Colon RN RN da3 Elizabeth Jiang tw5 Corrections: (The following items were deleted from the chart) 01/19 21:10 21:07 PMHx: Hypertensive disorder; chris3 chris3 01/20 00:26 01/19 21:08 PMHx: double mastectomy; chris3 lp1 01/20 04:40 03:40 to thoracic surgery main main 05:35 03:40 Aortic aneurysm of unspecified site, without rupture - chronic dissection main main 05:35 04:40 to thoracic surgery main main 06:29 05:35 to thoracic surgery main tw5
--- NOTE | 2021-01-20 03:40 | ER ---
Nurse's Notes [facility] Name: Sasha Asif Age: 80 yrs Sex: Female : 1940 Arrival Date: 01/19/2021 Time: 20:46 Bed 6 Private MD: Linda Vazquez Diagnosis: Aortic aneurysm of unspecified site, without rupture;Essential (primary) hypertension;Dysphasia;Unspecified kidney failure Presentation: 01/19 21:04 Chief complaint: Patient states: back pain x 3 days, and unable to cough effectivly. da3 Coronavirus screen: Vaccine status: Patient reports receiving the 1st dose of the Covid vaccine. Ebola Screen: No symptoms or risks identified at this time. Initial Sepsis Screen: Does the patient meet any 2 criteria? No. Patient's initial sepsis screen is negative. Does the patient have a suspected source of infection? No. Patient's initial sepsis screen is negative. Risk Assessment: Do you want to hurt yourself or someone else? Patient reports no desire to harm self or others. Onset of symptoms was January 16, 2021. 21:04 Method Of Arrival: Ambulatory da3 21:04 Acuity: LIZETTE 3 da3 Triage Assessment: 21:08 The onset of the patients symptoms was more than six hours ago. General: Appears in no da3 apparent distress. uncomfortable, Behavior is calm, cooperative. Pain: Complains of pain in back Pain currently is 9 out of 10 on a pain scale. Historical: - Allergies: 01/20 00:12 No Known Allergies; lp1 - Home Meds: 00:12 hydrocodone [Active]; Lyrica Oral [Active]; Mirtazapine Oral [Active]; Lisinopril Oral lp1 [Active]; "cancer pill" [Active]; - PMHx: 01/19 21:08 breast cancer; da3 01/20 00:12 Hypertensive disorder; lung cancer; lp1 - PSHx: 01/19 21:08 lung lopectomy; da3 01/20 00:12 Pacemaker (non-functional); bilateral mastectomy; lp1 - Immunization history:: Client reports receiving the 2nd dose of the Covid vaccine. - Social history:: Smoking status: Patient reports the use of cigarette tobacco products, smokes one pack cigarettes per day. Screenin/13 22:33 Abuse screen: Denies threats or abuse. Denies injuries from another. Tuberculosis tw5 screening: No symptoms or risk factors identified. Fall Risk No fall in past 12 months (0 pts). Secondary diagnosis (15 points) IV access (20 points). Ambulatory Aid- None/Bed Rest/Nurse Assist (0 pts). Gait- Weak (10 pts.). Mental Status- Oriented to own ability (0 pts). Assessment: 22:33 VAN Scoring: Arm Drift: Patients demonstrates NO arm weakness. Patient is VAN Negative. tw5 The patient has not been NPO before screening. The patient is alert, and able to follow commands. The patient does not exhibit slurred or garbled speech. The patient is not exhibiting difficulty speaking. The patient is exhibiting difficulty understanding words. The patient is unable to swallow own secretions without drooling or the need for suction. Patient tolerated one teaspoon of water. No drooling, immediate coughing, gurgling, or clearing of the throat was noted. The patient tolerated 90mL of water. No drooling, immediate coughing, gurgling, or clearing of the throat was noted. The patient passed the bedside swallow screening. Oral medications may be given as ordered. Contact Physician for further diet orders. Provider notified of bedside swallow screening results: Bo CHAN. General: Reports " For the past week, I have been having this terrible pain in my back." Patient also go on to explain " I feel like my voice has changed, and I cannot cough. I try and cough and I cannot, and it is taking me longer to swallow food.". Neuro: Level of Consciousness is awake, alert, obeys commands, Oriented to person, place, time, situation. Cardiovascular: Capillary refill < 3 seconds is brisk in bilateral Rhythm is regular. Respiratory: Airway is patent Trachea midline Respiratory effort is even, unlabored. 01/20 01:16 Reassessment: pt unable to tolerate mid-line placement, pt was yelling stop, stop bb attempt aborted, catheter intact, bleeding controlled. 01:35 General: Behavior is anxious, Reports. tw5 Vital Signs: 01/19 21:04 BP 161 / 99; Pulse 102; Resp 22; Temp 97.6; Pulse Ox 100% on R/A; Weight 46.72 kg; da3 Height 4 ft. 10 in. (147.32 cm); 22:33 BP 168 / 93; Pulse 92; Pulse Ox 100% on R/A; tw5 01/20 05:03 BP 138 / 59; Pulse 76; Resp 18; Pulse Ox 98% on R/A; tw5 01/19 21:04 Body Mass Index 21.53 (46.72 kg, 147.32 cm) da3 NIH Stroke Scale Scores: 01/19 22:33 NIHSS Score: 0 tw5 ED Course: 20:46 Patient arrived in ED. es 20:47 Linda Vazquez MD is Private Physician. es 21:07 Triage completed. da3 21:08 Arm band placed on right wrist. da3 21:55 [facility]ward [facility]. jr8 21:55 Harrison Ramirez MD is Attending Physician. jr8 22:02 Elizabeth Jiang is Primary Nurse. tw5 22:18 EKG done, by ED staff. tw5 22:33 Patient has correct armband on for positive identification. Placed in gown. Bed in low tw5 position. Call light in reach. Side rails up X2. hospital monitor on. Pulse ox on. NIBP on. Door closed. Moved to private room. Warm blanket given. Verbal reassurance given. 22:33 Inserted saline lock: 22 gauge in right wrist, using aseptic technique. tw5 22:37 XRAY Chest Pa And Lat (2 Views) In Process Unspecified. EDMS 22:44 CT Head C Spine In Process Unspecified. EDMS 01/20 02:36 Accessed peripheral vein via ultrasound, utilizing dynamic ultrasound technique using bb per hospital protocol. Good blood return. Flushes easily. Powerglide midline 20 g 8 cm. Pt tolerated well after injection of lidocaine to right upper arm area by Bo CHAN. 03:20 CT Aorta for Dissection In Process Unspecified. EDMS 04:22 initiated a transfer with Cristela from [facility]. mw2 04:[address] Ramirez with the Doctor from [facility]. mw2 05:20 administrative approval given by Cristela Lange/ patient has been accepted to [address] to [address] [facility] bed 22/ Dr. Pardo accepted the patient in transfer/ report to be called to [phone]. Administered Medications: 01:20 Not Given (Patient Refused; patient states IV hurts, refuses new IVv): NS 0.9% 500 ml tw5 IV at bolus once 02:00 Drug: Lidocaine (1 %) 5 mg {Note: by Bo DICKERSON} Route: Infiltration; tw 03:36 Follow up: Response: No adverse reaction tw5 04:04 Drug: Labetalol 10 mg Route: IVP; Site: right antecubital; tw5 04:04 Drug: Labetalol 100 mg Route: PO; tw 05:02 Drug: Labetalol 10 mg Route: IVP; Infused Over: 2 mins; Site: right antecubital; Outcome: 03:40 ER care complete, transfer ordered by MD. quach 06:29 Patient left the ED. tw NIH Stroke Scale - NIH Stroke Score Date: 01/19/2021 Time: 22:33 Total Score = 0 1a. Level of Consciousness (LOC) - 0(Alert) 1b. Level of Consciousness (LOC) (Month \\T\\ Age) - 0(Both) 1c. LOC Commands (Open \\T\\ Closes Eyes/Exercise Physiology Professor) - 0(Both) 2. Best Gaze (Lateral Gaze Paresis) - 0(Normal) 3. Visual Field Loss - 0(No visual loss) 4. Facial Palsy - 0(Normal) 5a. Left Arm: Motor (10-second hold) - 0(No drift) 5b. Right Arm: Motor (10-second hold) - 0(No drift) 6a. Left Leg: Motor (5-second hold - always test supine) - 0(No drift) 6b. Right Leg: Motor (5-second hold - always test supine) - 0(No drift) 7. Limb Ataxia (finger/nose \\T\\ heel/quarles - test with eyes open) - 0(Absent) 8. Sensory Loss (pinprick arms/legs/face) - 0(Normal) 9. Best Language: Aphasia (description/naming/reading) - 0(No aphasia) 10. Dysarthria (speech clarity - read or repeat words) - 0(Normal) 11. Extinction and Inattention (visual/tactile/auditory/spatial/personal) - 0(No abnormality) Initials: tw5 Signatures: Dispatcher [employer] Harrison Cross MD MD cha Salyer, Edna es Ballard, Brenda, RN RN bb Swati Tatum RN RN lp1 Bo Woodward PA PA 8 Asad Betancourt 2 Nikolas Colon RN RN da3 Elizabeth Jiang 5 Corrections: (The following items were deleted from the chart) 01/19 21:10 21:07 PMHx: Hypertensive disorder; da3 da3 01/20 00:26 01/19 21:08 PMHx: double mastectomy; da3 lp1
[2021-01-20] MEDS ORDERED: LABETALOL HCL 100 MG/20 ML ONE (04:01)
[2021-01-20] MEDS ORDERED: LABETALOL HCL 100 MG TAB ONE (04:01)
[2021-01-20 06:36] VITALS: TEMP 97.6
[2021-01-20 06:39] VITALS: BP 138/59; O2SAT 98
--- NOTE | 2021-01-20 08:18 | RAD REPORT ---
EXAM DESCRIPTION: RAD - Chest Pa And Lat (2 Views) - 01/19/2021 10:37 pm CLINICAL HISTORY: COUGH COMPARISON: November 14 TECHNIQUE: Frontal and lateral views of the chest were obtained. FINDINGS: The lungs are clear. Interstitial pattern matches comparison. Left subclavian 2 lead pace maker remains in place. Heart size is normal and central vasculature is within normal limits. No ple ural effusion or pneumothorax seen. No acute bony finding noted. Aneurysmal dilatation of the aortic arch and descending thoracic aorta noted. This is not clearly dif ferent from the November noncontrast study. IMPRESSION: No acute cardiopulmonary process. The stable from November aortic aneurysm has not been fully evaluated to date. CT angio aorta or CT an erna dissection imaging could be performed to fully evaluate the aorta
--- NOTE | 2021-01-20 12:27 | EKG ---
Test Date: 2021-01-19 Test Time: 22:17:37 Manager Title: TW MEASUREMENT RESULTS: Intervals: Rate: 91 IL: 150 QRSD: 72 QT: 364 QTc: 447 Rueter: P: 37 IL: 150 QRS: -11 T: 34 INTERPRETIVE STATEMENTS: Normal sinus rhythm Normal ECG Compared to ECG 11/14/2020 17:27:27 Sinus bradycardia no longer present Electronically Signed On 01-20-21 12:25:45 SITE FOREMAN by Chuckie Rowe
--- NOTE | 2021-01-20 12:27 | RAD REPORT ---
EXAM DESCRIPTION: CT - [id number] - 01/20/2021 4:32 am CLINICAL HISTORY: Pain;Weakness. Upper back pain. TECHNIQUE: Noncontrast CT through the head was performed. Axial, coronal, and sagittal reconstructio ns were created and sent to PACS. CT of the cervical spine was performed without contrast. Axial, coronal, and sagittal reconstructions were created and sent to PACS. These exams were performed according to our departmental dose-optimization program which includes use of Automated Exposure Control, adjustment of the mA and/or kV according to patient size and/or use o f iterative reconstruction technique. COMPARISON: None. FINDINGS: CT Head: There is diffuse age-appropriate atrophy seen throughout the brain parenchyma. Mild periventricular w caroline matter changes are seen to be present and there is mild ex vacuo dilatation of the ventricular s ystem. There is no intra-axial or extra-axial bleed. There is no mass or mass effect. Possible tiny c hronic left basal ganglia lacunar infarct. The visualized paranasal sinuses and mastoid air cells are clear. No acute fracture is identified. CT cervical spine: No acute osseous abnormality identified. Vertebral body height and alignment are maintained. No atlan todental interval widening. Atlantoaxial alignment is maintained. The facet joints are well aligned. The posterior elements are intact. The occipital condyles are well aligned with the C1 lateral masses . The transverse foramina are intact. Small multilevel posterior disc osteophyte complexes with no si gnificant central canal narrowing. Mild to moderate neuroforaminal narrowing at C5-6 and C6-7 due to uncinate hypertrophy. Paraspinal soft tissues: No prevertebral soft tissue swelling. No evidence of epidural hematoma. No a cute findings in the demonstrated portions of the lung apices. Moderate calcific atherosclerosis in t he carotid bulbs. Partially imaged thoracic aortic aneurysm, at least involving the aortic arch and p roximal descending aorta. Associated intimal thickening versus thin chronic mural hematoma, based on the calcification pattern. IMPRESSION: 1. No acute intracranial abnormality identified. 2. No acute osseous abnormality identified in the cervical spine. Mild degenerative changes. 3. Partially imaged thoracic aortic aneurysm. Consider correlation with CTA of the chest, if clinic ally necessary based on patient symptoms. Electronically signed by: Scarlet Cannon MD 01/19/2021 11:03 PM BUYER AGENT Due to temporary technical issues with the PACS/Fluency reporting system, reports are being signed by the in house radiologist without review as a courtesy to ensure prompt reporting. The interpreting r adiologist is fully responsible for the content of the report.
--- NOTE | 2021-01-20 12:33 | RAD REPORT ---
EXAM DESCRIPTION: CT - Angio Aorta For Dissection - 01/20/2021 6:50 am CLINICAL HISTORY: 80 years Female aneurysm. Back Pain COMPARISON: None TECHNIQUE: CT angiography of the chest, abdomen and pelvis was performed with axial dataset after michaelle zhen injection of intravenous contrast. Multiplanar reformation, 3D and MIP reconstructions were perfo rmed. This exam was performed according to our departmental dose-optimization program, which includes automated exposure control, adjustment of the mA and/or kV according to patient size and/or use of i terative reconstruction technique. FINDINGS: Chest Aorta: Descending thoracic aortic aneurysm measures 4 cm and there are penetrating aortic ulcerations medially in its mid segment. A noncontrast study were not performed, however there is suggestion of crescent-shaped density along the medial wall of the descending aorta. Penetrating ulcers are also se en at the level of the aortic arch laterally. Pulmonary arteries: No evidence of pulmonary embolism. Mediastinum: No adenopathy. Heart: Heart is normal in size. No pericardial effusion. Atherosclerotic calcification of the coron geraldine arteries. Lungs / airways: No consolidation. Airways are patent. Pleura: No significant pleural effusion. No pneumothorax. Osseous: Multilevel degenerative changes. Soft tissues: Unremarkable. Abdomen/pelvis: Liver: Right hepatic lobe cyst measuring 2.0 x 2.2 cm. Gallbladder: Negative. Pancreas: Within normal limits. Spleen: Calcified granulomas are present. Kidneys: Atrophy of the right kidney. Exophytic hypodensity in the left kidney measuring 1.1 x 0.9 cm (30 HU). Adrenal glands: Within normal limits. Vasculature: Infrarenal abdominal aortic aneurysm measuring 5.6 x 5.9 cm. Atherosclerotic calcificati on of the aorta and its major branches. Nonopacification of the right renal artery. Opacification of the inferior mesenteric artery. Nonopacification of the left external iliac artery. Bowel: No bowel distention. Appendix: Within normal limits. Peritoneum: No free fluid or free air. Lymph Nodes: No lymphadenopathy. Reproductive: Status post hysterectomy. Urinary bladder: Unremarkable. Osseous structures: Multilevel degenerative changes. A 1.2 x 0.9 cm focal sclerosis at L4 vertebral b crys anteriorly. A 1.1 x 0.8 cm focal sclerosis in the left ilium adjacent to the sacroiliac joint. Soft tissues: Unremarkable. IMPRESSION: Chest: 1. A 4 cm descending thoracic aortic aneurysm with penetrating aortic ulcerations medially in its mid segment. A noncontrast study were not performed, however there is suggestion of crescent-shaped dens ity along the medial wall of the descending aorta most suspicious for intramural hematoma. Abdomen and pelvis: 1. A 5.9 cm infrarenal abdominal aortic aneurysm. Recommend referral to a vascular specialist. Refere nce: J Am Rachid Radiol 2013;10:789-794. 2. Nonopacification of the right renal artery indicative of occlusion with atrophy of the right kidne y. 3. Nonopacification of the inferior mesenteric artery and left external iliac artery indicative of oc clusion. 4. Indeterminate 1 cm exophytic hypodensity of the left kidney. This can be further evaluated with mu ltiphasic CT or MRI of the kidneys. 5. Focal sclerosis at L4 vertebral body and left ilium as described above. This can be further evalua jorge with bone scan or MRI. Electronically signed by: Wily Rodriguez MD 01/20/2021 4:39 AM ARC WELDER Due to temporary technical issues with the PACS/Fluency reporting system, reports are being signed by the in house radiologist without review as a courtesy to ensure prompt reporting. The interpreting r adiologist is fully responsible for the content of the report.
== END 2021-01-20 06:29 | disposition short-term general hospital (02) ==
LOC: ER 20:44
DX: I10 Essential (primary) hypertension (principal); R47.02 Dysphasia; N19 Unspecified kidney failure; I71.9 Aortic aneurysm of unspecified site, without rupture; F17.210 Nicotine dependence, cigarettes, uncomplicated; Z85.118 Personal history of other malignant neoplasm of bronchus and lung; Z95.0 Presence of cardiac pacemaker; Z85.3 Personal history of malignant neoplasm of breast; Z20.822 Contact with and (suspected) exposure to COVID-19; Z90.13 Acquired absence of bilateral breasts and nipples
CPT/HCPCS: 93005; 85025; 80048; 36415; 83735; 85610; 80076; 84484; 83880; 70450; 72125; 71275; 74175; 71046; U0003; Q9967; 96374; 99285

== ENCOUNTER 2021-08-06 03:45 | Inpatient (IN) | payer OTHER ==
[2021-08-06] MEDS ORDERED: LEVALBUTEROL 1.25 MG/3 ML NEB ONE (05:22)
[2021-08-06] MEDS ORDERED: METHYLPREDNISOLONE 125 MG INJ ONE ×3 (05:22→14:57)
[2021-08-06 05:23] LABS: Absolute Lymphocytes (CBC) 1.8 K/uL (0.7-4.9); Lymphocytes % 21.6 % (15.3-44.8); MCV 82.1 fL (80-100); MPV 8.2 fL (7.6-11.3); RBC Red Blood Cell Count 3.53 M/uL (3.86-4.86)
[2021-08-06 05:44] LABS: Potassium 3.9 mmol/L (3.5-5.1)
--- NOTE | 2021-08-06 05:48 | P.HP ---
Certification for Inpatient Patient admitted to: Observation With expected LOS: <2 Midnights Patient will require the following post-hospital care: None Practitioner: I am a practitioner with admitting privileges, knowledge of patient current condition, hospital course, and medical plan of care. Services: Services provided to patient in accordance with Admission requirements found in Title 42 Section 412.3 of the Code of Federal Regulations Patient History Date of Service: 08/06/21 Primary Care Provider: George Reason for admission: Acute Resp Failure History of Present Illness: Patient is a 79 y/o F with bipolar disorder, HTN, history of breast and lung cancer who presents with one day SOB. She states she has been under a lot of stress lately as she is moving. She smokes 1/2 ppd. Patient audibly wheezing. She was saturating 88% on RA upon arrival. Given breathing treatment and saturation improved. Chest xray showed bilateral pleural effusions. Labs significant for Cr 1.57, hgb 9.3. ED provider wishes to admit patient for observation. Allergies No Known Allergies Allergy (Unverified 11/14/20 21:09) Home medications list reviewed: Yes Home Medications: Atorvastatin Calcium [Lipitor] 40 mg PO BEDTIME #30 tab 11/16/20 Hydrocodone/Acetaminophen [Hydrocodone-Acetamin 10-325 mg] 1 tab PO TID 11/16/20 Letrozole [Femara*] 2.5 mg PO DAILY 11/16/20 Mirtazapine 45 mg PO BEDTIME 11/16/20 carvediloL [Carvedilol] 12.5 mg PO BID 11/16/20 Amlodipine [Norvasc] 5 mg PO DAILY 03/11/21 - Past Medical/Surgical History Diabetic: No -: HTN -: breast cancer -: lung cancer -: bipolar disorder -: mastectomy -: lobectomy Psychosocial/ Personal History: . - Family History Family History: Reviewed- Non-Contributory - Social History Smoking Status: Current every day smoker Alcohol use: No CD- Drugs: Yes Caffeine use: Yes Review of Systems Respiratory: Cough, Shortness of Breath, Wheezing Physical Examination - Physical Exam General: Alert, In no apparent distress HEENT: Atraumatic, PERRLA, EOMI, Sclerae nonicteric Neck: Supple, 2+ carotid pulse no bruit, No LAD, Without JVD or thyroid abnormality Respiratory: Expiratory wheezes Cardiovascular: Regular rate/rhythm, Normal S1 S2 Gastrointestinal: Normal bowel sounds, No tenderness Musculoskeletal: No tenderness Integumentary: No rashes Neurological: Normal speech, Normal strength at 5/5 x4 extr, Normal tone, Normal affect - Studies Laboratory Data (last 24 hrs) 08/06/21 04:43: WBC 8.1, Hgb 9.3 L, Hct 29.0 L, Plt Count 163 08/06/21 04:43: Sodium 138, Potassium 3.9, BUN 26 H, Creatinine 1.57 H, Glucose 127 H Assessment and Plan - Problems (Diagnosis) (1) Acute respiratory failure with hypoxia Current Visit: Yes Status: Acute (2) ANGELITO (acute kidney injury) Current Visit: Yes Status: Acute (3) HTN (hypertension) Current Visit: Yes Status: Chronic Qualifiers: Hypertension type: primary hypertension - Plan -Continue scheduled breathing treatments and IV steroids -Pulmonology consulted -Patient has been hypertensive. Hydralazine PRN -Monitor and replete electrolytes per protocol -Reconcile and continue home medications -Lovenox for VTE ppx -Full code Discharge Plan: Home Plan to discharge in: 24 Hours - Advance Directives Does patient have a Living Will: No Does patient have a Durable POA for Healthcare: No - Code Status/Comfort Care Code Status Assessed: Yes (Full) Critical Care: No Time Spent Managing Pts Care (In Minutes): 50
--- NOTE | 2021-08-06 06:50 | ER ---
Nurse's Notes [facility] Name: Sasha Asif Age: 80 yrs Sex: Female : 1940 Arrival Date: 08/06/2021 Time: 03:56 Bed 7 Private MD: Diagnosis: COPD/ Chronic obstructive pulmonary disease with (acute) exacerbation Presentation: 08/06 03:56 Chief complaint: EMS states: she started having difficulty breathing around 0100 this kd3 morning. on scene, pt was audibility wheezing and o2 sat is around 88 to 89. 2.5 mg albuterol was administered en route, pt improved but still wheezing. Coronavirus screen: Vaccine status: Patient reports receiving the 2nd dose of the covid vaccine. Ebola Screen: No symptoms or risks identified at this time. Initial Sepsis Screen: Does the patient meet any 2 criteria? No. Patient's initial sepsis screen is negative. Does the patient have a suspected source of infection? No. Patient's initial sepsis screen is negative. Risk Assessment: Do you want to hurt yourself or someone else? Patient reports no desire to harm self or others. Onset of symptoms was August 06, 2021. 03:56 Method Of Arrival: EMS: [facility] kd3 03:56 Acuity: LIZETTE 3 kd3 Triage Assessment: 04:00 General: Appears uncomfortable, Behavior is calm, cooperative. Pain: Denies pain. kd3 Respiratory: Airway is patent Trachea midline Respiratory effort is even, Respiratory pattern is Breath sounds with wheezes bilaterally. Historical: - Home Meds: 04:00 Mirtazapine Oral [Active]; Lyrica Oral [Active]; lisinopril Oral [Active]; Hydrocodone kd3 [Active]; "cancer pill" [Active]; - PMHx: 04:00 Lung Cancer; Hypertensive disorder; breast cancer; kd3 - PSHx: 04:00 Pacemaker (non-functional); lung lopectomy; bilateral mastectomy; kd3 - Immunization history:: Adult Immunizations up to date. - Social history:: Smoking status: Patient reports the use of cigarette tobacco products, smokes one pack cigarettes per day. Screenin:01 Abuse screen: Denies threats or abuse. Denies injuries from another. Nutritional kd3 screening: No deficits noted. Tuberculosis screening: No symptoms or risk factors identified. Fall Risk None identified. Assessment: 04:01 Reassessment: see triage. kd3 Vital Signs: 03:56 BP 198 / 81; Pulse 75; Resp 22; Temp 98.0(O); Pulse Ox 95% on 1 lpm NC; Weight 38.1 kg; kd3 Height 4 ft. 10 in. (147.32 cm); Pain 0/10; 04:21 BP 186 / 85; Pulse 73; Resp 16; Pulse Ox 96% on 1 lpm NC; kd3 06:17 BP 182 / 76; Pulse 75; Resp 14; Pulse Ox 95% on 1 lpm NC; kd3 03:56 Body Mass Index 17.56 (38.10 kg, 147.32 cm) kd3 ED Course: 03:56 Patient arrived in ED. kd3 03:56 Valeria Arenas RN is Primary Nurse. kd3 04:00 Triage completed. kd3 04:00 Arm band placed on right wrist. kd3 04:01 Patient has correct armband on for positive identification. kd3 04:01 No provider procedures requiring assistance completed. kd3 04:09 Dilshad Frances MD is Attending Physician. kdr 04:20 Inserted saline lock: 24 gauge in right antecubital area, using aseptic technique. kd3 Blood collected. 04:42 XRAY Chest (1 view) In Process Unspecified. EDMS 06:49 Leo Ludwig is Hospitalizing Provider. kdr 07:25 Primary Nurse role handed off by Valeria Arenas RN eb 07:28 Nica Polo, TALI is Primary Nurse. 6 Administered Medications: 05:17 Drug: Xopenex (levalbuterol) (3) 1.25 mg Route: Inhalation; kd3 05:17 Drug: SOLU-Medrol (methylPrednisoLONE) 125 mg Route: IVP; Site: right antecubital; kd3 Medication: 04:01 VIS not applicable for this client. kd3 Outcome: 06:50 Decision to Hospitalize by Provider. kdr 16:17 Admitted to Tele accompanied by reji, via stretcher, room 212, with oxygen, Report jh6 called to bessie 16:17 Condition: improved 16:17 Instructed on the need for admit. 16:19 Patient left the ED. [facility] Signatures: Dispatcher [employer] EDKS RittgDilshad corrigan MD MD kdr Botello, Elizabeth eb Doucette, Kyli, RN RN kd3 HasNica jalloh RN RN jh6
--- NOTE | 2021-08-06 06:50 | EDPHYS ---
Physician Documentation [facility] Name: Sasha Asif Age: 80 yrs Sex: Female : 1940 Arrival Date: 08/06/2021 Time: 03:56 Bed 7 Private MD: ED Physician Dilshad Frances HPI: 08/06 08:44 This 80 yrs old Female presents to ER via EMS with complaints of SOB. kdr 08:44 Patient reports awaking about 1 AM and having difficulty breathing. When EMS arrived kdr her oxygen saturation was 88 to 89%. She is not on home oxygen. EMS gave her several rounds of albuterol in route to the hospital. She was improved but still wheezing and is still dyspneic on arrival. She did not require immediate intervention on arrival. Onset: The symptoms/episode began/occurred suddenly, this morning. Severity of symptoms: At their worst the symptoms were mild moderate in the emergency department the symptoms are unchanged. The patient has not experienced similar symptoms in the past. The patient has not recently seen a physician. Historical: - Home Meds: 04:00 Mirtazapine Oral [Active]; Lyrica Oral [Active]; lisinopril Oral [Active]; Hydrocodone kd3 [Active]; "cancer pill" [Active]; - PMHx: 04:00 Lung Cancer; Hypertensive disorder; breast cancer; kd3 - PSHx: 04:00 Pacemaker (non-functional); lung lopectomy; bilateral mastectomy; kd3 - Immunization history:: Adult Immunizations up to date. - Social history:: Smoking status: Patient reports the use of cigarette tobacco products, smokes one pack cigarettes per day. ROS: 08:44 Constitutional: Negative for fever, chills, and weight loss, Eyes: Negative for injury, kdr pain, redness, and discharge, Neck: Negative for injury, pain, and swelling, Cardiovascular: Negative for chest pain, palpitations, and edema, Abdomen/GI: Negative for abdominal pain, nausea, vomiting, diarrhea, and constipation, Back: Negative for injury and pain, : Negative for injury, bleeding, discharge, and swelling, MS/Extremity: Negative for injury and deformity, Skin: Negative for injury, rash, and discoloration, Neuro: Negative for headache, weakness, numbness, tingling, and seizure activity. Psych: Negative for depression, anxiety, suicide ideation, homicidal ideation, and hallucinations, Allergy/Immunology: Negative for hives, rash, and allergies, Endocrine: Negative for neck swelling, polydipsia, polyuria, polyphagia, and marked weight changes, Hematologic/Lymphatic: Negative for swollen nodes, abnormal bleeding, and unusual bruising. 08:44 Respiratory: Positive for cough, dyspnea on exertion, shortness of breath, wheezing, inspiratory, expiratory. Exam: 08:44 Constitutional: This is a well developed, well nourished patient who is awake, alert, kdr and in no acute distress. Head/Face: Normocephalic, atraumatic. Eyes: Pupils equal round and reactive to light, extra-ocular motions intact. Lids and lashes normal. Conjunctiva and sclera are non-icteric and not injected. Cornea within normal limits. Periorbital areas with no swelling, redness, or edema. Neck: Trachea midline, no thyromegaly or masses palpated, and no cervical lymphadenopathy. Supple, full range of motion without nuchal rigidity, or vertebral point tenderness. No Meningismus. Chest/axilla: Normal chest wall appearance and motion. Nontender with no deformity. No lesions are appreciated. Cardiovascular: Regular rate and rhythm with a normal S1 and S2. No gallops, murmurs, or rubs. Normal PMI, no JVD. No pulse deficits. Abdomen/GI: Soft, non-tender, with normal bowel sounds. No distension or tympany. No guarding or rebound. No evidence of tenderness throughout. Back: No spinal tenderness. No costovertebral tenderness. Full range of motion. Skin: Warm, dry with normal turgor. Normal color with no rashes, no lesions, and no evidence of cellulitis. MS/ Extremity: Pulses equal, no cyanosis. Neurovascular intact. Full, normal range of motion. Neuro: Awake and alert, GCS 15, oriented to person, place, time, and situation. Cranial nerves II-XII grossly intact. Motor strength 5/5 in all extremities. Sensory grossly intact. Cerebellar exam normal. Normal gait. Psych: Awake, alert, with orientation to person, place and time. Behavior, mood, and affect are within normal limits. 08:44 Respiratory: mild respiratory distress is noted, Respirations: normal, symetrical, no use of accessory muscles, no appreciated paradoxical movements, no prolonged exhalations, no pursed lip breathing, no retractions, no shallow respirations, no splinting, no tachypnea, Breath sounds: rales, that are mild, are scattered, wheezing: expiratory that is mild, is heard diffusely. Vital Signs: 03:56 BP 198 / 81; Pulse 75; Resp 22; Temp 98.0(O); Pulse Ox 95% on 1 lpm NC; Weight 38.1 kg; kd3 Height 4 ft. 10 in. (147.32 cm); Pain 0/10; 04:21 BP 186 / 85; Pulse 73; Resp 16; Pulse Ox 96% on 1 lpm NC; kd3 06:17 BP 182 / 76; Pulse 75; Resp 14; Pulse Ox 95% on 1 lpm NC; kd3 03:56 Body Mass Index 17.56 (38.10 kg, 147.32 cm) kd3 MDM: 06:50 Patient medically screened. kdr 08:44 Data reviewed: vital signs, nurses notes, lab test result(s), radiologic studies. kdr Counseling: I had a detailed discussion with the patient and/or guardian regarding: the historical points, exam findings, and any diagnostic results supporting the discharge/admit diagnosis, lab results, radiology results, the need for further work-up and treatment in the hospital. 08/06 04:28 Order name: Basic Metabolic Panel; Complete Time: 05:51 08/06 04:28 Order name: CBC with Diff; Complete Time: 05:43 3 08/06 04:28 Order name: Troponin HS; Complete Time: 05:51 08/06 04:28 Order name: XRAY Chest (1 view) 08/06 05:13 Order name: COVID-19 SARS RT PCR (Document "Date of Onset" if Symptomatic); Complete kd3 Time: 06:47 08/06 04:28 Order name: EKG; Complete Time: 04:29 08/06 04:28 Order name: Cardiac monitoring; Complete Time: 04:28 08/06 04:28 Order name: EKG - Nurse/Tech; Complete Time: 04:28 kd3 08/06 04:28 Order name: IV Saline Lock; Complete Time: 04:28 08/06 04:28 Order name: Labs collected and sent; Complete Time: 04:28 kd3 08/06 04:28 Order name: O2 Per Protocol; Complete Time: 04:28 kd3 08/06 04:28 Order name: O2 Sat Monitoring; Complete Time: : kd3 Administered Medications: 05:17 Drug: Xopenex (levalbuterol) (3) 1.25 mg Route: Inhalation; kd3 05:17 Drug: SOLU-Medrol (methylPrednisoLONE) 125 mg Route: IVP; Site: right antecubital; kd3 Disposition Summary: 08/06/21 06:50 Hospitalization Ordered Hospitalization Status: Inpatient Admission kdr Provider: Leo Ludwig Condition: Stable kdr Problem: new kdr Symptoms: have improved kdr Bed/Room Type: Standard kdr Location: Telemetry/MedSurg (Inpatient)(08/06/21 14:41) Room Assignment: [facility](08/06/21 14:41) iw Diagnosis - COPD/ Chronic obstructive pulmonary disease with (acute) exacerbation kdr Forms: - Medication Reconciliation Form kdr - SBAR form kdr Signatures: Dispatcher [employer] EDMS Dilshad Frances MD MD kdr Nieves Archer RN RN iw Thuan Wright RN RN ja1 Diamante Arrieta Kyli, RN RN kd3 Loreta Colin PA PA sb3 Corrections: (The following items were deleted from the chart) 09:39 06:50 kdr ja1 10:18 06:50 Telemetry/MedSurg (Inpatient) kdr iw 10:18 09:39 210 ja1 iw 12:02 10:18 [facility] [place] ER HOLD iw eb 12:02 10:18 ERHOLD- iw eb 12:03 12:02 Telemetry/MedSurg (Inpatient) eb eb 12:03 12:02 202 eb eb 14:41 12:03 [facility] [place] ER HOLD eb iw 14:41 12:03 ERHOLD- eb iw
[2021-08-06] MEDS: METHYLPREDNISOLONE 125 MG INJ IV SCH ×3 (07:30→17:06)
[2021-08-06] MEDS ORDERED: ACETAMINOPHEN 500 MG TAB PO PRN (07:30)
[2021-08-06] MEDS ORDERED: ONDANSETRON 4 MG/2 ML VIAL IV PRN (07:30)
[2021-08-06] MEDS ORDERED: HYDRALAZINE HCL 20 MG/ML VIAL IV PRN (07:30)
[2021-08-06] MEDS ORDERED: IPRATROPIUM BROM 0.5MG/2.5ML NEB SCH (08:00)
[2021-08-06] MEDS ORDERED: ALBUTEROL 2.5 MG/3 ML NEB SOL NEB SCH ×2 (08:00→08:35)
[2021-08-06] MEDS ORDERED: ALBUTEROL 2.5 MG/3 ML NEB SOL ONE ×4 (08:24→16:01)
[2021-08-06] MEDS ORDERED: IPRATROPIUM BROM 0.5MG/2.5ML ONE ×2 (08:24→12:23)
[2021-08-06] MEDS ORDERED: ENOXAPARIN 30 MG/0.3 ML SQ ONE (08:25)
[2021-08-06] MEDS: ENOXAPARIN 30 MG/0.3 ML SQ SCH (08:32)
[2021-08-06] MEDS: IPRATROPIUM BROM 0.5MG/2.5ML NEB SCH ×3 (08:35→19:30)
[2021-08-06] MEDS ORDERED: HYDRALAZINE HCL 20 MG/ML VIAL ONE (08:45)
[2021-08-06] MEDS ORDERED: NITROGLYCERIN 1 GM PKT TD ONE (09:08)
[2021-08-06] MEDS ORDERED: AMLODIPINE 10 MG TAB ONE (09:27)
[2021-08-06] MEDS ORDERED: MORPHINE 2 MG/ML SYR IV ONE (10:51)
[2021-08-06] MEDS ORDERED: FUROSEMIDE 40 MG/4 ML VIAL IV ONE (10:51)
[2021-08-06] MEDS ORDERED: FUROSEMIDE 40 MG/4 ML VIAL ONE (11:01)
[2021-08-06] MEDS ORDERED: MORPHINE 2 MG/ML SYR ONE (11:05)
[2021-08-06] MEDS: ALBUTEROL 2.5 MG/3 ML NEB SOL NEB SCH ×3 (12:16→19:30)
--- NOTE | 2021-08-06 13:16 | RAD REPORT ---
EXAM DESCRIPTION: RAD - Chest Single View - 08/06/2021 4:40 am CLINICAL HISTORY: The patient is 80 years old and is Female; SOB TECHNIQUE: Frontal view of the chest. COMPARISON: No relevant prior studies available. FINDINGS: Lungs: Hazy bibasilar opacities. Pleural space: Blunting of the costophrenic angles suggestive of bilateral pleural effusions. Left hemidiaphragm is obscured which can be seen with left pleural effusion, as well as left lower lobe consolidation or atelectasis. No pneumothorax. Heart: Unremarkable. Mediastinum: Unremarkable. Bones/joints: Unremarkable. Vasculature: Prominent ascending aorta. Tubes, lines and devices: Left-sided pacemaker. IMPRESSION: 1. Blunting of the costophrenic angles suggestive of bilateral pleural effusions. 2. Left hemidiaphragm is obscured which can be seen with left pleural effusion, as well as left low er lobe consolidation or atelectasis. 3. Hazy bibasilar opacities. Electronically signed by: Levi Terrell MD 08/06/2021 5:21 AM CDT Due to temporary technical issues with the PACS/Fluency reporting system, reports are being signed by the in house radiologists without. review as a courtesy to insure prompt reporting. The interpreting radiologist is fully responsible for the content of the report
--- NOTE | 2021-08-06 14:38 | P.PN ---
Date of Service: 08/06/21 Patient seen and examined. She was in respiratory distress this morning, she was wheezing and tachypneic. Placed on BiPAP therapy, given bronchodilator treatment, IV steroid and IV Lasix with improvement. She has been weaned off BiPAP to oxygen by nasal cannula. She was also hypotensive and was given a dose of amlodipine 10 mg as well as Nitropaste. Also given IV morphine for back pain or shortness of breath. On respiratory examination patient noted to be wheezing with diminished breath sounds. Diagnosis: COPD exacerbation Acute respiratory failure with hypoxia. Bilateral pneumonia. Plan: Continue IV steroid, bronchodilators. Added IV Levaquin for possible pneumonia. IV Lasix for pleural effusion. Titrate oxygen. Pulmonary consulted. Continue amlodipine Resume home dose Coreg.
[2021-08-06] MEDS ORDERED: Levofloxacin 750mg IV 750 MG/150 ML BAG IV SCH (15:00)
[2021-08-06 18:20] VITALS: BMI 17.3
--- NOTE | 2021-08-06 19:17 | P.PN ---
Date of Service: 08/06/21 Notified that patient had a mechanical fall at 1900. She was trying to get out of bed and balance with the bedside table but ended up falling. She denies hitting her head or losing consciousness. She reports no pain. She has full ROM in all 4 extremities. Physical and neurologic exam benign. No need for further imaging at this time. Continue to monitor patient and update as fall risk.
[2021-08-06] MEDS: carvediloL 12.5 MG TAB PO SCH (20:58)
[2021-08-06] MEDS ORDERED: HYDROCODONE/APAP 7.5/325 MG TAB PO PRN (20:59)
[2021-08-07] MEDS: ALBUTEROL 2.5 MG/3 ML NEB SOL NEB SCH ×6 (00:22→19:45)
[2021-08-07] MEDS: METHYLPREDNISOLONE 125 MG INJ IV SCH ×3 (01:04→11:33)
[2021-08-07] MEDS: IPRATROPIUM BROM 0.5MG/2.5ML NEB SCH ×4 (03:20→19:45)
[2021-08-07 04:36] LABS: Hematocrit 25.5 % (36.0-45.0); Lymphocytes % 18.8 % (15.3-44.8); MCV 80.5 fL (80-100); MPV 7.9 fL (7.6-11.3); RBC Red Blood Cell Count 3.16 M/uL (3.86-4.86)
[2021-08-07 04:54] LABS: Albumin 2.8 g/dL (3.4-5.0); Bilirubin Total 0.6 mg/dL (0.2-1.0); Potassium 3.1 mmol/L (3.5-5.1); Protein, Total 6.6 g/dL (6.4-8.2)
[2021-08-07] MEDS ORDERED: POTASSIUM 25 MEQ EFFERV TAB PO ONE (06:18)
[2021-08-07] MEDS: carvediloL 12.5 MG TAB PO SCH ×2 (08:19→21:57)
[2021-08-07] MEDS: ENOXAPARIN 30 MG/0.3 ML SQ SCH (08:19)
[2021-08-07] MEDS ORDERED: AMLODIPINE 10 MG TAB PO SCH (09:00)
--- NOTE | 2021-08-07 09:53 | EKG ---
Test Date: 2021-08-06 Test Time: 03:53:45 Correctional Therapy Director: KEENAN MEASUREMENT RESULTS: Intervals: Rate: 74 PA: 160 QRSD: 76 QT: 432 QTc: 479 Roma: P: 34 PA: 160 QRS: 71 T: 93 INTERPRETIVE STATEMENTS: Normal sinus rhythm Moderate voltage criteria for LVH, may be normal variant Borderline ECG Compared to ECG 03/11/2021 01:28:30 ST (T wave) deviation no longer present Possible ischemia no longer present Electronically Signed On 08-07-21 09:48:56 CDT by Chuckie Rowe
--- NOTE | 2021-08-07 11:03 | P.PN ---
Subjective Date of Service: 08/07/21 Primary Care Provider: George Chief Complaint: Acute Resp Failure Subjective: Improving Patient states she feels much better today. She is reported to have fallen last night. No injuries sustained. She states her shortness of breath is much better. She has been tolerating 2 L oxygen by nasal cannula as compared to yesterday when she was needing BiPAP. She also tolerating diet. Physical Examination - Vital Signs Temperature: 97.6 F Blood Pressure: 164/77 Pulse: 83 Respirations: 16 Pulse Ox (%): 97 - Physical Exam General: Alert, In no apparent distress, Oriented x3, Cachectic HEENT: Mucous membr. moist/pink Neck: Supple, JVD not distended Respiratory: Crackles/rales (Mild bilateral crackles), Expiratory wheezes (Mild scattered wheezes) Cardiovascular: No edema, Regular rate/rhythm, Normal S1 S2 Gastrointestinal: Normal bowel sounds, Soft and benign, Non-distended, No tenderness Musculoskeletal: No swelling, No tenderness Integumentary: No rashes, No erythema, No cyanosis Neurological: Normal strength at 5/5 x4 extr, Cranial nerves 3-12 intact Assessment And Plan - Current Problems (Diagnosis) (1) Pneumonia Current Visit: Yes Status: Acute (2) Acute respiratory failure with hypoxia Current Visit: Yes Status: Acute (3) COPD exacerbation Current Visit: Yes Status: Acute (4) History of lung cancer Current Visit: Yes Status: Acute (5) HTN (hypertension) Current Visit: Yes Status: Chronic Qualifiers: Hypertension type: primary hypertension (6) Chronic kidney disease, stage III (moderate) Current Visit: Yes Status: Acute (7) Fall Current Visit: Yes Status: Acute - Plan Continue IV steroid, scheduled bronchodilators for COPD. Wean off oxygen as tolerated Intermittent Lasix as needed. Continue antibiotics-Levaquin for pneumonia. PT consulted to evaluate functional status for therapy. Diet as tolerated. Pain management as needed. Continue home antihypertensives.
--- NOTE | 2021-08-07 12:08 | P.CNS ---
Date of Consult: 08/07/21 Reason for Consult: COPD exacerbation Primary Care Provider: George Chief Complaint: Shortness of breath History of Present Illness: Patient is 80 years of age with history of lung cancer and breast cancer mated with worsening dyspnea wheezing shortness of breath active smoker she is not on high oxygen or bronchodilators feeling better since admission still continues to smoke Allergies No Known Allergies Allergy (Unverified 11/14/20 21:09) Home Medications: Atorvastatin Calcium [Lipitor] 40 mg PO BEDTIME #30 tab 11/16/20 Hydrocodone/Acetaminophen [Hydrocodone-Acetamin 10-325 mg] 1 tab PO TID 11/16/20 Letrozole [Femara*] 2.5 mg PO DAILY 11/16/20 Mirtazapine 45 mg PO BEDTIME 11/16/20 carvediloL [Carvedilol] 12.5 mg PO BID 11/16/20 Amlodipine [Norvasc] 5 mg PO DAILY 03/11/21 Fluticasone/Salmeterol [Advair 250-50 Diskus] 1 each IH BID #60 blst.w.dev 08/07/21 Prednisone [Sterapred Ds] 10 mg PO BID #20 tab.ds.pk 08/07/21 - Past Medical/Surgical History Diabetic: No -: HTN -: breast cancer -: lung cancer -: bipolar disorder -: mastectomy -: lobectomy Psychosocial/ Personal History: . - Social History Smoking Status: Current every day smoker Alcohol use: No CD- Drugs: Yes Caffeine use: Yes Place of Residence: Home Review of Systems General: Weakness Respiratory: Shortness of Breath Physical Examination Temp Pulse Resp BP Pulse Ox 97.6 F 83 16 164/77 H 97 08/07/21 11:06 08/07/21 11:06 08/07/21 11:06 08/07/21 11:06 08/07/21 11:06 General: Alert, In no apparent distress, Oriented x3 Respiratory: Expiratory wheezes Cardiovascular: No edema, Regular rate/rhythm Gastrointestinal: Normal bowel sounds, Soft and benign - Problems (1) COPD exacerbation Current Visit: Yes Status: Acute Plan: Patient is 80 years of age admitted with COPD exacerbation active smoker history of lung cancer treated with a medication 3 years ago also has a breast cancer that was treated a while ago oxygenation satisfactory 99% on 2 L blood pressure is mildly elevated patient has chronic renal failure mild anemia normocytic interstitial changes noted on chest x-ray
[2021-08-07] MEDS: HYDROCODONE/APAP 10/325 TAB PO SCH ×3 (13:20→21:58)
[2021-08-07] MEDS ORDERED: PNEUMOCOCCAL VACCINE 0.5 ML IMVAC ONE (16:00)
[2021-08-07] MEDS: ATORVASTATIN 40 MG TAB PO SCH (21:58)
[2021-08-07] MEDS: MIRTAZAPINE 15 MG TAB PO SCH (21:59)
[2021-08-07] MEDS: predniSONE 20 MG TAB PO SCH (21:59)
[2021-08-08] MEDS: ALBUTEROL 2.5 MG/3 ML NEB SOL NEB SCH ×4 (01:20→19:40)
[2021-08-08] MEDS: IPRATROPIUM BROM 0.5MG/2.5ML NEB SCH ×4 (01:20→19:40)
[2021-08-08] MEDS: predniSONE 20 MG TAB PO SCH ×2 (08:46→21:17)
[2021-08-08] MEDS: carvediloL 12.5 MG TAB PO SCH ×2 (08:46→21:17)
[2021-08-08] MEDS: AMLODIPINE 5 MG TAB PO SCH (08:47)
[2021-08-08] MEDS: HYDROCODONE/APAP 10/325 TAB PO SCH ×3 (08:47→21:17)
[2021-08-08] MEDS: ENOXAPARIN 30 MG/0.3 ML SQ SCH (08:53)
[2021-08-08] MEDS ORDERED: levoFLOXacin 750 MG TAB PO SCH (09:00)
--- NOTE | 2021-08-08 10:17 | P.PN ---
Subjective Date of Service: 08/08/21 Primary Care Provider: George Chief Complaint: COPD exacerbation Subjective: Improving (Improving still complaining of chest congestion) Review of Systems General: Weakness Respiratory: Cough, Shortness of Breath Physical Examination - Vital Signs Temperature: 97.8 F Blood Pressure: 178/81 Pulse: 67 Respirations: 36 Pulse Ox (%): 97 - Physical Exam General: Alert, In no apparent distress, Mild distress Respiratory: Expiratory wheezes Cardiovascular: No edema, Regular rate/rhythm Assessment And Plan - Current Problems (Diagnosis) (1) COPD exacerbation Current Visit: Yes Status: Acute Plan: Patient admitted with COPD exacerbation she will qualify for home O2 diagnosis severe COPD ambulate possible discharge today prednisone levofloxacin and Advair patient to follow-up with me in 1 to 2 weeks history of chronic renal failure labs reviewed blood pressures little elevated Discharge Plan: Home Plan to discharge in: 24 Hours
[2021-08-08] MEDS: LETROZOLE 2.5 MG TAB PO SCH (11:23)
--- NOTE | 2021-08-08 20:21 | P.PN ---
Date of Service: 08/08/21 Notified that patient has been refusing blood draws all day. Lab has now attempted 4 times and she has refused. Patient was educated on the importance of checking labs in order to predict her prognosis. Will retry in the morning.
[2021-08-08] MEDS: ATORVASTATIN 40 MG TAB PO SCH (21:17)
[2021-08-08] MEDS: MIRTAZAPINE 15 MG TAB PO SCH (21:17)
[2021-08-09] MEDS: ALBUTEROL 2.5 MG/3 ML NEB SOL NEB SCH ×3 (01:20→14:00)
[2021-08-09] MEDS: IPRATROPIUM BROM 0.5MG/2.5ML NEB SCH ×3 (01:20→14:00)
[2021-08-09] MEDS: HYDROCODONE/APAP 10/325 TAB PO SCH ×2 (08:25→14:00)
[2021-08-09] MEDS: predniSONE 20 MG TAB PO SCH (08:25)
[2021-08-09] MEDS: carvediloL 12.5 MG TAB PO SCH (08:26)
[2021-08-09] MEDS: AMLODIPINE 5 MG TAB PO SCH (08:26)
[2021-08-09] MEDS: ENOXAPARIN 30 MG/0.3 ML SQ SCH (08:27)
[2021-08-09] MEDS: LETROZOLE 2.5 MG TAB PO SCH (08:28)
[2021-08-09] MEDS ORDERED: SPIRONOLACTONE 25 MG TABLET PO SCH (09:48)
--- NOTE | 2021-08-09 09:49 | P.PN ---
Subjective Date of Service: 08/09/21 Primary Care Provider: George Chief Complaint: COPD exacerbation Subjective: Improving (Still complaining of chest congestion still is very weak) Review of Systems General: Weakness Respiratory: Cough, Shortness of Breath Physical Examination - Vital Signs Temperature: 97.0 F Blood Pressure: 180/82 Pulse: 64 Respirations: 13 Pulse Ox (%): 95 - Physical Exam General: Alert, In no apparent distress, Oriented x3 Respiratory: Clear to auscultation bilaterally, Diminished Cardiovascular: No edema, Regular rate/rhythm Assessment And Plan - Current Problems (Diagnosis) (1) COPD exacerbation Current Visit: Yes Status: Acute Plan: Patient admitted with COPD exacerbation qualifies for home O2 very weak debilitated ordered some physical therapy as oxygen has been set up plan for dis charge (2) HTN (hypertension) Current Visit: Yes Status: Chronic Plan: Blood pressure elevated increase amlodipine to 10 mg once a day add spironolactone Qualifiers: Hypertension type: primary hypertension Discharge Plan: Home Plan to discharge in: 24 Hours - Code Status/Comfort Care Code Status Assessed: Yes
[2021-08-09 10:43] VITALS: O2SAT 97
[2021-08-09 12:12] VITALS: BP 164/76; TEMP 97.8
[2021-08-10] MEDS ORDERED: AMLODIPINE 5 MG TAB PO SCH (09:00)
--- OUTSIDE RECORDS SUMMARY | 2021-08-26 03:27 | XMS REPORT | Continuity of Care Document ---
:1940 Author Organization [facility] t Address [address] [place] [address] Care Team Providers Name Role Phone Jairo Vazquez Attending Clinician Unavailable Barb Attending Clinician Unavailable JIMBO QUEVEDO Attending Clinician Unavailable DR JB Attending Clinician Unavailable Barb Admitting Clinician Unavailable JIMBO QUEVEDO Admitting Clinician Unavailable DR JB Admitting Clinician Unavailable Payers Payer Name Policy Type Policy Number Effective Date Expiration Date S nancy MEDICARE A B [id number] 1999 00:00:00 Problems This patient has no known problems. Allergies, Adverse Reactions, Alerts Allergy Allergy Status Severity Reaction(s) Onset Inactive Treating Comm ents Source Name Type Date Date Clinician NO KNOWN Allergy Active [facility] Medications Ordered Filled Start Stop Current Ordering Indication Dosage Frequency Signature Comments Components Source Medication Medication Date Date Medication? Clinician (SIG) Name Name Lisinopril Lisinopril 2018- Yes Na Vazquez 1 tablet Common 3-05 [facility] 00:[facility]: - [facility] 00 [facility] ProAir HFA ProAir HFA Yes Na Vazquez 2 puffs as Common needed [facility] BusPIRone BusPIRone Yes Na Vazquez 1 tablet Common HCl HCl [facility] Corbin Corbin Yes Na Vazquez 1 tablet Common as needed [facility] Gabapentin Gabapentin Yes Na Vazquez 1 capsule Common before Spirit bedtime [facility] Mirtazapine Mirtazapine Yes Na Vazquez 1 tablet Common at bedtime [facility] Vitamin D3 Vitamin D3 Yes Na Vazquez 1 tablet [facility] Arimidex Arimidex Yes Na Vazquez 1 tablet [facility] Alendronate Alendronate Yes Na Vazquez 1 tablet Common Sodium Sodium [facility] Levothyroxi Levothyroxi Yes Na Vazquez TAKE 1 Common ne Sodium ne Sodium TABLET BY [facility] MOUTH - [facility] DAY [facility] [place] M[facility] Levothyroxi Levothyroxi Yes Na Vazquez 1 tablet Common ne Sodium ne Sodium on an Spir it empty - [facility] stomach in [facility] Immunizations Ordered Immunization Filled Immunization Date Status Commen ts Source Name Name FluAD FluAD 2018-10-31 Completed [facility] 00:00:00 [facility] Vital Signs Vital Name Observation Time Observation Value Comments Source HEIGHT 2021-01-20 07:00:00 147.3 cm WEIGHT 2021-01-20 07:00:00 46.72 kg HEIGHT 2021-01-20 07:00:00 147.3 cm WEIGHT 2021-01-20 07:00:00 46.72 kg Procedures This patient has no known procedures. Encounters Start End Encounter Admission Attending Care Care Encounter Source Date/Time Date/Time Type Type Clinicians Facility Department ID 2021-06-12 Outpatient Linda Vazquez [facility] [id number] Common 09:47:00 [facility] 2021-03-[address] [facility] Cardiovascu [id number] [address] [place] [address] 17:57:15 [facility] 2021-03-04 Outpatient Vazquez, Linda [facility] STLC [id number] 2 Common 14:34:04 [facility] 2021-03-04 Outpatient VazquezLinda blanco [facility] STLC [id number] 2 Common 14:30:07 [facility] 2021-03-04 Outpatient Linda Vazquez [facility] STLC [id number] 2 Common 13:52:09 [facility] 2021-03-04 Outpatient Linda Vazquez [facility] STLMLC [id number] 2 Common 13:36:42 [id number] [facility] 2021-03-04 Outpatient Vazquez, Na STLMLC STLMLC [id number] Common 12:37:51 [id number] [facility] 2021-03-04 Outpatient Vazquez, Na STLMLC STLMLC [id number] Common 12:11:23 [id number] [facility] 2021-03-04 Outpatient Vazquez, Na STLMLC STLMLC [id number] Common 11:44:16 [id number] [facility] 2021-03-04 Outpatient Vazquez, Na STLMLC STLMLC [id number] Common 11:40:44 [id number] [facility] 2021-03-04 Outpatient Vazquez, Na STLMLC STLMLC [id number] Common 11:21:52 [id number] [facility] 2021-03-04 Outpatient Vazquez, Na STLMLC STLMLC [id number] Common 11:06:22 [id number] [facility] 2021-07-30 2021-07-30 Outpatient Audrey_Ormb [facility] [id number] [place] 03:33:00 03:33:00 ergMT [id number] e [facility] 2021-07-29 2021-07-29 ambulatory STLMLC STLMLC [id number] Common 00:00:00 00:00:00 [facility] 2021-07-22 2021-07-22 ambulatory STLMLC STLMLC [id number] Common 00:00:00 00:00:00 [facility] 2021-07-03 2021-07-03 ambulatory STLMLC STLMLC [id number] Common 00:00:00 00:00:00 [facility] 2021-06-18 2021-06-18 ambulatory STLMLC STLMLC [id number] Common 00:00:00 00:00:00 [facility] 2021-06-16 2021-06-16 ambulatory STLMLC STLMLC [id number] Common 00:00:00 00:00:00 [facility] 2021-06-15 2021-06-15 ambulatory STLMLC STLMLC [id number] Common 00:00:00 00:00:00 [facility] 2021-06-11 2021-06-11 ambulatory STLMLC STLMLC [id number] Common 00:00:00 00:00:00 [facility] 2021-05-18 2021-05-18 ambulatory STLMLC STLMLC [id number] Common 00:00:00 00:00:00 [facility] 2021-05-11 2021-05-11 ambulatory STLMLC STLMLC [id number] Common 00:00:00 00:00:00 [facility] 2021-05-08 2021-05-08 ambulatory STLMLC STLMLC [id number] Common 00:00:00 00:00:00 [facility] 2021-05-04 2021-05-04 ambulatory STLMLC STLMLC [id number] Common 00:00:00 00:00:00 [facility] 2021-04-29 2021-04-29 ambulatory STLMLC STLMLC [id number] Common 00:00:00 00:00:00 [facility] 2021-04-16 2021-04-16 ambulatory STLMLC STLMLC [id number] Common 00:00:00 00:00:00 [facility] 2021-04-08 2021-04-08 ambulatory STLMLC STLMLC [id number] Common 00:00:00 00:00:00 [facility] 2021-04-02 2021-04-02 ambulatory STLMLC STLMLC [id number] Common 00:00:00 00:00:00 [facility] 2021-04-02 2021-04-02 ambulatory STLMLC STLMLC [id number] Common 00:00:00 00:00:00 [facility] 2021-03-30 2021-03-30 ambulatory STLMLC STLMLC [id number] Common 00:00:00 00:00:00 [facility] 2021-03-202021-03-23 Inpatient UR PREVENTZA, [facility] Cardiovascu 2 [id number] [facility] 12:56:00 16:54:00 OURANIA l 2021-02-25 2021-02-25 ambulatory STLMLC STLMLC [id number] Common 00:00:00 00:00:00 [facility] 2021-02-25 2021-02-25 ambulatory STLMLC STLMLC [id number] Common 00:00:00 00:00:00 [facility] 2021-01-29 2021-01-29 ambulatory STLMLC STLMLC [id number] Common 00:00:00 00:00:00 [facility] 2021-01-28 2021-01-28 ambulatory STLMLC STLMLC [id number] Common 00:00:00 00:00:00 [facility] 2021-01-20 2021-01-21 Inpatient ER PREVENTZA, [facility] General Med 2 [id number] [facility] 07:33:00 16:04:00 OURANIA 2021-01-20 2021-01-20 Outpatient BCM BCM [id number] 6 [facility] 00:00:00 23:59:00 Mazin 2021-01-19 2021-01-19 ambulatory STLMLC STLMLC [id number] Common 00:00:00 00:00:00 [facility] 2020-12-15 2020-12-15 ambulatory STLMLC STLMLC [id number] Common 00:00:00 00:00:00 [facility] 2020-11-28 2020-11-28 ambulatory STLMLC STLMLC [id number] Common 00:00:00 00:00:00 [facility] 2020-11-24 2020-11-24 Outpatient STLMLC STLMLC [id number] Common 00:00:00 00:00:00 [facility] 2020-10-31 2020-10-31 Outpatient STLMLC STLMLC [id number] Common 00:00:00 00:00:00 [facility] 2020-10-31 2020-10-31 Outpatient STLMLC STLMLC [id number] Common 00:00:00 00:00:00 [facility] 2020-09-17 2020-09-17 Outpatient STLMLC STLMLC [id number] Common 00:00:00 00:00:00 [facility] 2020-08-25 2020-08-25 Outpatient STLMLC STLMLC [id number] Common 00:00:00 00:00:00 [facility] 2020-07-30 2020-07-30 Outpatient STLMLC STLMLC [id number] Common 00:00:00 00:00:00 [facility] 2020-07-24 2020-07-24 Outpatient STLMLC STLMLC [id number] Common 00:00:00 00:00:00 [facility] 2020-06-27 2020-06-27 Outpatient STLMLC STLMLC [id number] Common 00:00:00 00:00:00 [facility] 2020-04-17 2020-04-17 Outpatient STLMLC STLMLC [id number] Common 00:00:00 00:00:00 [facility] 2020-04-08 2020-04-08 Outpatient STLMLC STLMLC [id number] Common 00:00:00 00:00:00 [facility] 2020-01-17 2020-01-17 Outpatient STLMLC STLMLC [id number] Common 00:00:00 00:00:00 [facility] 2019-12-07 2019-12-07 Outpatient STLMLC STLMLC [id number] Common 00:00:00 00:00:00 [facility] 2019-10-19 2019-10-19 [facility] [id number] Common 14:00:00 14:00:00 [address] [facility] 2019-10-19 2019-10-19 [facility] [id number] Common 14:00:00 14:00:[address] [facility] 2019-06-25 2019-06-25 [facility] [id number] Common 13:00:00 13:00:00 [place] [address] [facility] 2019-03-19 2019-03-19 [facility] [id number] Common 16:00:00 16:00:00 [place] [address] [facility] 2018-10-31 2018-10-31 [facility] [id number] Common 16:20:00 16:20:00 [place] [address] [facility] 2018-10-11 2018-10-11 [facility] [id number] Common 10:14:00 10:14:00 [place] [address] [facility] 2018-10-10 2018-10-10 [facility] [id number] Common 15:45:00 15:45:00 [place] [address] [facility] 2018-04-11 2018-04-11 [facility] [id number] Common 14:00:00 14:00:00 [place] [address] [facility] 2018-01-11 2018-01-11 [facility] [id number] Common 14:15:00 14:15:00 [place] [address] [facility] 2017-11-11 2017-11-11 Out[facility] [id number] Common 14:51:00 14:51:00 [place] [address] [facility] 2017-11-02 2017-11-02 Out[facility] [id number] Common 11:00:00 11:00:00 [place] [address] [facility] 2017-10-26 2017-10-26 Out[facility] [id number] Common 15:29:00 15:29:00 [place] [address] [facility] 2017-10-12 2017-10-12 Out[facility] [id number] Common 15:00:00 15:00:00 [place] [address] [facility] 2017-08-01 2017-08-01 Outpatient Humberto Narayanan [id number] Common 15:15:00 15:15:00 [place] [address] [facility] 2017-07-06 2017-07-06 Outpatient Humberto Narayanan [id number] Common 16:22:00 16:22:00 [place] [address] [facility] 2017-06-07 2017-06-07 Outpatient Humberto Narayanan [id number] Common 15:15:00 15:15:00 [place] [address] [facility] Results Test Description Test Time Test Comments Results Result Comments Source PHOSPHORUS 2021-03-23 08:00:10 Test Item Value Reference Range Interpretation Comme nts PHOSPHORUS (BEAKER) (test code = 604) 4.0 mg/dL 2.3-4.7 Cloth Folder Hand ID - DBBASIC METABOLIC [id number] 08:00:09 Test Item Value Reference Range Interpretation Comments SODIUM (BEAKER) 135 meq/L 136-145 L (test code = 381) POTASSIUM (BEAKER) 3.0 meq/L 3.5-5.1 L (test code = 379) CHLORIDE (BEAKER) 106 meq/L 98-107 (test code = 382) CO2 (BEAKER) (test 21 meq/L 22-29 L code = 355) BLOOD UREA NITROGEN 16 mg/dL 7-21 (BEAKER) (test code = 354) CREATININE (BEAKER) 1.14 mg/dL 0.57-1.25 (test code = 358) GLUCOSE RANDOM 90 mg/dL 70-105 (BEAKER) (test code = 652) CALCIUM (BEAKER) 8.5 mg/dL 8.4-10.2 (test code = 697) EGFR (BEAKER) (test 46 mL/min/1.73 ESTIMA ROSA ELENA GFR IS code = 1092) sq m NOT ACCURATE CREATININE CLEARANCE IN PREDICTING GLOMERULAR FILTRATION RATE . ESTIMATED GFR I S NOT APPLICABLE FOR DIALYSIS PATIEN TS. Cloth Folder Hand ID - [id number] 08:00:09 Test Item Value Reference Range Interpretation Comments MAGNESIUM (BEAKER) (test code = 1.8 mg/dL 1.6-2.6 627) Cloth Folder Hand ID - DBCBC (HEMOGRAM ONLY)2021-03-23 07:37:02 Test Item Value Reference Range Interpretation Comments WHITE BLOOD CELL COUNT (BEAKER) 6.6 K/ L 3.5-10.5 (test code = 775) RED BLOOD CELL COUNT (BEAKER) 3.23 M/ L 3.93-5.22 L (test code = 761) HEMOGLOBIN (BEAKER) (test code = 8.8 GM/DL 11.2-15.7 L 410) HEMATOCRIT (BEAKER) (test code = 27.6 % 34.1-44.9 L 411) MEAN CORPUSCULAR VOLUME (BEAKER) 85.4 fL 79.4-94.8 (test code = 753) MEAN CORPUSCULAR HEMOGLOBIN 27.2 pg 25.6-32.2 (BEAKER) (test code = 751) MEAN CORPUSCULAR HEMOGLOBIN CONC 31.9 GM/DL 32.2-35.5 L (BEAKER) (test code = 752) RED CELL DISTRIBUTION WIDTH 19.3 % 11.7-14.4 H (BEAKER) (test code = 412) PLATELET COUNT (BEAKER) (test 161 K/CU MM 150-450 code = 756) MEAN PLATELET VOLUME (BEAKER) 10.0 fL 9.4-12.3 (test code = 754) NUCLEATED RED BLOOD CELLS 0 /100 WBC 0-0 (BEAKER) (test code = 413) [id number] 05:55:53 Test Item Value Reference Range Interpretation Comments PHOSPHORUS (BEAKER) (test code = 3.9 mg/dL 2.3-4.7 604) Cloth Folder Hand ID - PIAYA LBASIC METABOLIC [id number] 05:55:52 Test Item Value Reference Range Interpretation Comments SODIUM (BEAKER) 138 meq/L 136-145 (test code = 381) POTASSIUM (BEAKER) 3.5 meq/L 3.5-5.1 (test code = 379) CHLORIDE (BEAKER) 111 meq/L 98-107 H (test code = 382) CO2 (BEAKER) (test 18 meq/L 22-29 L code = 355) BLOOD UREA NITROGEN 15 mg/dL 7-21 (BEAKER) (test code = 354) CREATININE (BEAKER) 1.26 mg/dL 0.57-1.25 H (test code = 358) GLUCOSE RANDOM 78 mg/dL 70-105 (BEAKER) (test code = 652) CALCIUM (BEAKER) 8.6 mg/dL 8.4-10.2 (test code = 697) EGFR (BEAKER) (test 41 mL/min/1.73 ESTIMA ROSA ELENA GFR IS code = 1092) sq m NOT ACCURATE CREATININE CLEARANCE IN PREDICTING GLOMERULAR FILTRATION RATE . ESTIMATED GFR I S NOT APPLICABLE FOR DIALYSIS PATIEN TS. Cloth Folder Hand ID - PISHREYA [id number] 05:55:52 Test Item Value Reference Range Interpretation Comments MAGNESIUM (BEAKER) (test code = 1.8 mg/dL 1.6-2.6 627) Cloth Folder Hand ID - SRAVAN LCBC (HEMOGRAM ONLY)2021-03-22 05:09:07 Test Item Value Reference Range Interpretation Comments WHITE BLOOD CELL COUNT (BEAKER) 6.9 K/ L 3.5-10.5 (test code = 775) RED BLOOD CELL COUNT (BEAKER) 3.08 M/ L 3.93-5.22 L (test code = 761) HEMOGLOBIN (BEAKER) (test code = 8.4 GM/DL 11.2-15.7 L 410) HEMATOCRIT (BEAKER) (test code = 27.4 % 34.1-44.9 L 411) MEAN CORPUSCULAR VOLUME (BEAKER) 89.0 fL 79.4-94.8 (test code = 753) MEAN CORPUSCULAR HEMOGLOBIN 27.3 pg 25.6-32.2 (BEAKER) (test code = 751) MEAN CORPUSCULAR HEMOGLOBIN CONC 30.7 GM/DL 32.2-35.5 L (BEAKER) (test code = 752) RED CELL DISTRIBUTION WIDTH 19.5 % 11.7-14.4 H (BEAKER) (test code = 412) PLATELET COUNT (BEAKER) (test 160 K/CU MM 150-450 code = 756) MEAN PLATELET VOLUME (BEAKER) 10.3 fL 9.4-12.3 (test code = 754) NUCLEATED RED BLOOD CELLS 0 /100 WBC 0-0 (BEAKER) (test code = 413) [id number] 04:31:28 Test Item Value Reference Range Interpretation Comments MAGNESIUM (BEAKER) (test code = 1.9 mg/dL 1.6-2.6 627) Cloth Folder Hand FELICE BURGESS [id number] 04:31:28 Test Item Value Reference Range Interpretation Comments PHOSPHORUS (BEAKER) (test code = 3.5 mg/dL 2.3-4.7 604) Cloth Folder Hand FELICE BURGESS MBASIC METABOLIC [id number] 04:31:27 Test Item Value Reference Range Interpretation Comments SODIUM (BEAKER) 141 meq/L 136-145 (test code = 381) POTASSIUM (BEAKER) 3.8 meq/L 3.5-5.1 (test code = 379) CHLORIDE (BEAKER) 113 meq/L 98-107 H (test code = 382) CO2 (BEAKER) (test 19 meq/L 22-29 L code = 355) BLOOD UREA NITROGEN 13 mg/dL 7-21 (BEAKER) (test code = 354) CREATININE (BEAKER) 1.26 mg/dL 0.57-1.25 H (test code = 358) GLUCOSE RANDOM 71 mg/dL 70-105 (BEAKER) (test code = 652) CALCIUM (BEAKER) 8.4 mg/dL 8.4-10.2 (test code = 697) EGFR (BEAKER) (test 41 mL/min/1.73 ESTIMA ROSA ELENA GFR IS code = 1092) sq m NOT ACCURATE CREATININE CLEARANCE IN PREDICTING GLOMERULAR FILTRATION RATE . ESTIMATED GFR I S NOT APPLICABLE FOR DIALYSIS PATIEN TS. Cloth Folder Hand FELICE BURGESS MCBC (HEMOGRAM ONLY)2021-03-21 03:56:59 Test Item Value Reference Range Interpretation Comments WHITE BLOOD CELL COUNT (BEAKER) 9.8 K/ L 3.5-10.5 (test code = 775) RED BLOOD CELL COUNT (BEAKER) 3.43 M/ L 3.93-5.22 L (test code = 761) HEMOGLOBIN (BEAKER) (test code = 9.4 GM/DL 11.2-15.7 L 410) HEMATOCRIT (BEAKER) (test code = 30.4 % 34.1-44.9 L 411) MEAN CORPUSCULAR VOLUME (BEAKER) 88.6 fL 79.4-94.8 (test code = 753) MEAN CORPUSCULAR HEMOGLOBIN 27.4 pg 25.6-32.2 (BEAKER) (test code = 751) MEAN CORPUSCULAR HEMOGLOBIN CONC 30.9 GM/DL 32.2-35.5 L (BEAKER) (test code = 752) RED CELL DISTRIBUTION WIDTH 19.8 % 11.7-14.4 H (BEAKER) (test code = 412) PLATELET COUNT (BEAKER) (test 179 K/CU MM 150-450 code = 756) MEAN PLATELET VOLUME (BEAKER) 10.2 fL 9.4-12.3 (test code = 754) NUCLEATED RED BLOOD CELLS 0 /100 WBC 0-0 (BEAKER) (test code = 413) PROTHROMBIN [id number] 15:10:57 Test Item Value Reference Range Interpretation Comments PROTIME (BEAKER) 16.0 seconds 11.9-14.2 H (test code = 759) INR (BEAKER) (test 1.30 See_Comment [Automat ed message] code = 370) The system [employer] generated this result transmitted ref erence range: <=5.90. The reference range was not used to int erpret this result as normal/abnormal . RECOMMENDED COUMADIN/WARFARIN INR THERAPY RANGESSTANDARD DOSE: 2.0 - 3.0 Includes: PROPHYLAXIS forvenous thrombosis, systemic embolization; TREATMENT for venous thrombosis and/or pulmonary embolus.HIGH RISK: Target INR is 2.5-3.5 for patients with mechanical heart valves.[id number] 15:10:41 Test Item Value Reference Range Interpretation Comments PHOSPHORUS (BEAKER) (test code = 3.5 mg/dL 2.3-4.7 604) Cloth Folder Hand ID - PIAYA LBASIC METABOLIC [id number] 15:10:40 Test Item Value Reference Range Interpretation Comments SODIUM (BEAKER) 139 meq/L 136-145 (test code = 381) POTASSIUM (BEAKER) 3.1 meq/L 3.5-5.1 L (test code = 379) CHLORIDE (BEAKER) 111 meq/L 98-107 H (test code = 382) CO2 (BEAKER) (test 22 meq/L 22-29 code = 355) BLOOD UREA NITROGEN 11 mg/dL 7-21 (BEAKER) (test code = 354) CREATININE (BEAKER) 1.26 mg/dL 0.57-1.25 H (test code = 358) GLUCOSE RANDOM 85 mg/dL 70-105 (BEAKER) (test code = 652) CALCIUM (BEAKER) 8.2 mg/dL 8.4-10.2 L (test code = 697) EGFR (BEAKER) (test 41 mL/min/1.73 ESTIMA ROSA ELENA GFR IS code = 1092) sq m NOT ACCURATE CREATININE CLEARANCE IN PREDICTING GLOMERULAR FILTRATION RATE . ESTIMATED GFR I S NOT APPLICABLE FOR DIALYSIS PATIEN TS. Cloth Folder Hand ID - SHOLASHREYA [id number] 15:10:40 Test Item Value Reference Range Interpretation Comments MAGNESIUM (BEAKER) (test code = 1.9 mg/dL 1.6-2.6 627) Cloth Folder Hand ID - SHOLASHREYA LRAD, CHEST, 1 VIEW, NON [id number] 15:07:00Reason for exam:->Post-opShould this be performed at the bedside?->[facility] 1940 Sex: FFINAL REPORT INDICATION: Post-op COMPARISON: None TECHNIQUE: Single frontal view of the chest. FINDINGS: Lines, tubes, and devices: A dual lead left subclavian approach AICD-pacemaker combination projects in good position. Right PICC tip overlies the superior vena cava. Lungsand pleura: Right apical scarring. small left pleural effusion. Left retrocardiac opacity, representing singly or in combination airspace disease, atelectasis, or pleural effusion.Heart and mediastinum: Normal heart size. Unremarkable mediastinal contours.Osseous structures: No acute abnormality.Other: None. IMPRESSION: 1.Small left pleural effusion.2.Left retrocardiac opacity, representing singly norman combination airspace disease, atelectasis, or pleural effusion. Signed: Rohit Roman Verified Date/Time: 03/20/2021 15:07:12 Reading Location: [facility] Radiology Reading Room CBC W/PLT COUNT & AUTO [id number] 14:53:59 Test Item Value Reference Range Interpretation Comments WHITE BLOOD CELL COUNT (BEAKER) 8.5 K/ L 3.5-10.5 (test code = 775) RED BLOOD CELL COUNT (BEAKER) 3.30 M/ L 3.93-5.22 L (test code = 761) HEMOGLOBIN (BEAKER) (test code = 9.1 GM/DL 11.2-15.7 L 410) HEMATOCRIT (BEAKER) (test code = 29.2 % 34.1-44.9 L 411) MEAN CORPUSCULAR VOLUME (BEAKER) 88.5 fL 79.4-94.8 (test code = 753) MEAN CORPUSCULAR HEMOGLOBIN 27.6 pg 25.6-32.2 (BEAKER) (test code = 751) MEAN CORPUSCULAR HEMOGLOBIN CONC 31.2 GM/DL 32.2-35.5 L (BEAKER) (test code = 752) RED CELL DISTRIBUTION WIDTH 19.5 % 11.7-14.4 H (BEAKER) (test code = 412) PLATELET COUNT (BEAKER) (test 171 K/CU MM 150-450 code = 756) MEAN PLATELET VOLUME (BEAKER) 10.2 fL 9.4-12.3 (test code = 754) NUCLEATED RED BLOOD CELLS 0 /100 WBC 0-0 (BEAKER) (test code = 413) NEUTROPHILS RELATIVE PERCENT 68 % (BEAKER) (test code = 429) LYMPHOCYTES RELATIVE PERCENT 20 % (BEAKER) (test code = 430) MONOCYTES RELATIVE PERCENT 10 % (BEAKER) (test code = 431) EOSINOPHILS RELATIVE PERCENT 1 % (BEAKER) (test code = 432) BASOPHILS RELATIVE PERCENT 0 % (BEAKER) (test code = 437) NEUTROPHILS ABSOLUTE COUNT 5.75 K/ L 1.56-6.13 (BEAKER) (test code = 670) LYMPHOCYTES ABSOLUTE COUNT 1.70 K/ L 1.18-3.74 (BEAKER) (test code = 414) MONOCYTES ABSOLUTE COUNT (BEAKER) 0.83 K/ L 0.24-0.36 H (test code = 415) EOSINOPHILS ABSOLUTE COUNT 0.11 K/ L 0.04-0.36 (BEAKER) (test code = 416) BASOPHILS ABSOLUTE COUNT (BEAKER) 0.01 K/ L 0.01-0.08 (test code = 417) IMMATURE GRANULOCYTES-RELATIVE 1 % 0-1 PERCENT (BEAKER) (test code = 2801) BASIC METABOLIC [id number] 07:03:55 Test Item Value Reference Range Interpretation Comments SODIUM (BEAKER) 134 meq/L 136-145 L (test code = 381) POTASSIUM (BEAKER) 4.4 meq/L 3.5-5.1 (test code = 379) CHLORIDE (BEAKER) 101 meq/L 98-107 (test code = 382) CO2 (BEAKER) (test 23 meq/L 22-29 code = 355) BLOOD UREA NITROGEN 26 mg/dL 7-21 H (BEAKER) (test code = 354) CREATININE (BEAKER) 1.66 mg/dL 0.57-1.25 H (test code = 358) GLUCOSE RANDOM 94 mg/dL 70-105 (BEAKER) (test code = 652) CALCIUM (BEAKER) 9.4 mg/dL 8.4-10.2 (test code = 697) EGFR (BEAKER) (test 30 mL/min/1.73 ESTIMA ROSA ELENA GFR IS code = 1092) sq m NOT ACCURATE CREATININE CLEARANCE IN PREDICTING GLOMERULAR FILTRATION RATE . ESTIMATED GFR I S NOT APPLICABLE FOR DIALYSIS PATIEN TS. Cloth Folder Hand ID - ADITYA [id number] 07:03:55 Test Item Value Reference Range Interpretation Comments MAGNESIUM (BEAKER) (test code = 2.3 mg/dL 1.6-2.6 627) Cloth Folder Hand ID - ADITYA [id number] 07:03:55 Test Item Value Reference Range Interpretation Comments PHOSPHORUS (BEAKER) (test code = 4.9 mg/dL 2.3-4.7 H 604) Cloth Folder Hand ID - ADITYA [id number] [id number] 05:43:34 Test Item Value Reference Range Interpretation Comments PROTIME (BEAKER) 14.3 seconds 11.9-14.2 H (test code = 759) INR (BEAKER) (test 1.13 See_Comment [Automat ed message] code = 370) The system [employer] generated this result transmitted ref erence range: <=5.90. The reference range was not used to int erpret this result as normal/abnormal . RECOMMENDED COUMADIN/WARFARIN INR THERAPY RANGESSTANDARD DOSE: 2.0 - 3.0 Includes: PROPHYLAXIS forvenous thrombosis, systemic embolization; TREATMENT for venous thrombosis and/or pulmonary embolus.HIGH RISK: Target INR is 2.5-3.5 for patients with mechanical heart valves.CBC W/PLT COUNT & AUTO DIFFERENTIAL 2021-01-21 05:32:48 Test Item Value Reference Range Interpretation Comments WHITE BLOOD CELL COUNT (BEAKER) 7.2 K/ L 3.5-10.5 (test code = 775) RED BLOOD CELL COUNT (BEAKER) 3.10 M/ L 3.93-5.22 L (test code = 761) HEMOGLOBIN (BEAKER) (test code = 8.2 GM/DL 11.2-15.7 L 410) HEMATOCRIT (BEAKER) (test code = 26.2 % 34.1-44.9 L 411) MEAN CORPUSCULAR VOLUME (BEAKER) 84.5 fL 79.4-94.8 (test code = 753) MEAN CORPUSCULAR HEMOGLOBIN 26.5 pg 25.6-32.2 (BEAKER) (test code = 751) MEAN CORPUSCULAR HEMOGLOBIN CONC 31.3 GM/DL 32.2-35.5 L (BEAKER) (test code = 752) RED CELL DISTRIBUTION WIDTH 17.1 % 11.7-14.4 H (BEAKER) (test code = 412) PLATELET COUNT (BEAKER) (test 292 K/CU MM 150-450 code = 756) MEAN PLATELET VOLUME (BEAKER) 9.1 fL 9.4-12.3 L (test code = 754) NUCLEATED RED BLOOD CELLS 0 /100 WBC 0-0 (BEAKER) (test code = 413) NEUTROPHILS RELATIVE PERCENT 51 % (BEAKER) (test code = 429) LYMPHOCYTES RELATIVE PERCENT 35 % (BEAKER) (test code = 430) MONOCYTES RELATIVE PERCENT 11 % (BEAKER) (test code = 431) EOSINOPHILS RELATIVE PERCENT 2 % (BEAKER) (test code = 432) BASOPHILS RELATIVE PERCENT 1 % (BEAKER) (test code = 437) NEUTROPHILS ABSOLUTE COUNT 3.66 K/ L 1.56-6.13 (BEAKER) (test code = 670) LYMPHOCYTES ABSOLUTE COUNT 2.54 K/ L 1.18-3.74 (BEAKER) (test code = 414) MONOCYTES ABSOLUTE COUNT (BEAKER) 0.79 K/ L 0.24-0.36 H (test code = 415) EOSINOPHILS ABSOLUTE COUNT 0.17 K/ L 0.04-0.36 (BEAKER) (test code = 416) BASOPHILS ABSOLUTE COUNT (BEAKER) 0.04 K/ L 0.01-0.08 (test code = 417) IMMATURE GRANULOCYTES-RELATIVE 0 % 0-1 PERCENT (BEAKER) (test code = 2801) HEMOGLOBIN [id number] 19:28:27 Test Item Value Reference Range Interpretation Comments HEMOGLOBIN A1C (BEAKER) (test code = 6.0 % 4.3-6.1 368) B-TYPE NATRIURETIC FACTOR (BNP)2021-01-20 17:15:49 Test Item Value Reference Range Interpretation Comments B-TYPE NATRIURETIC PEPTIDE (BEAKER) 77 pg/mL 0-100 (test code = 700) Cloth Folder Hand ID - BSHIGH SENSITIVITY TROPONIN [id number] 17:15:33 Test Item Value Reference Range Interpretation Comments HIGH SENSITIVITY 6 pg/ml See_Comment [Automated message] TROPONIN I (test code = The system which [id number]) generated this result transmitted ref erence range: <=17. Th e reference range was not used to interpr et this result as normal/abnormal . Cloth Folder Hand ID - BSThe [employer]IN [employer] LAB[employer]ER STAT High Sensitivity Troponin-I results should be used in conjunctionwith other diagnostic information such as ECG, clinical observations and information, and patient symptoms to aid in the diagnosis of [place].LIPID [id number] 17:10:08 Test Item Value Reference Range Interpretation Comments TRIGLYCERIDES (BEAKER) (test code = 154 mg/dL 540) CHOLESTEROL (BEAKER) (test code = 160 mg/dL 631) HDL CHOLESTEROL (BEAKER) (test code 38 mg/dL = 976) LDL CHOLESTEROL CALCULATED (BEAKER) 91 mg/dL (test code = 633) Triglyceride Reference Range: Low Risk <150 Borderline 150-199 High Risk 200-499 Very High Risk >=500Cholesterol Reference Range: Low Risk <200 Borderline 200-239 High Risk >240HDL Cholesterol Reference Range: Low Risk >=60 High Risk <40LDL Cholesterol Reference Range: Optimal <100 Near Optimal 100-129 Borderline 130-159 High 160-189 Very High >=190 Cloth Folder Hand ID - [id number] 08:37:31 Test Item Value Reference Range Interpretation Comments PHOSPHORUS (BEAKER) (test code = 4.0 mg/dL 2.3-4.7 604) Cloth Folder Hand ID - DOROTA FBASIC METABOLIC [id number] 08:37:30 Test Item Value Reference Range Interpretation Comments SODIUM (BEAKER) 133 meq/L 136-145 L (test code = 381) POTASSIUM (BEAKER) 4.5 meq/L 3.5-5.1 (test code = 379) CHLORIDE (BEAKER) 99 meq/L 98-107 (test code = 382) CO2 (BEAKER) (test 23 meq/L 22-29 code = 355) BLOOD UREA NITROGEN 19 mg/dL 7-21 (BEAKER) (test code = 354) CREATININE (BEAKER) 1.55 mg/dL 0.57-1.25 H (test code = 358) GLUCOSE RANDOM 96 mg/dL 70-105 (BEAKER) (test code = 652) CALCIUM (BEAKER) 9.1 mg/dL 8.4-10.2 (test code = 697) EGFR (BEAKER) (test 32 mL/min/1.73 ESTIMA ROSA ELENA GFR IS code = 1092) sq m NOT ACCURATE CREATININE CLEARANCE IN PREDICTING GLOMERULAR FILTRATION RATE . ESTIMATED GFR I S NOT APPLICABLE FOR DIALYSIS PATIEN TS. Cloth Folder Hand ID - DOROTA [id number] 08:37:30 Test Item Value Reference Range Interpretation Comments MAGNESIUM (BEAKER) (test code = 2.1 mg/dL 1.6-2.6 627) Cloth Folder Hand ID - DOROTA FPROTHROMBIN TIME/[id number] 08:27:50 Test Item Value Reference Range Interpretation Comments PROTIME (BEAKER) 14.8 seconds 11.9-14.2 H (test code = 759) INR (BEAKER) (test 1.18 See_Comment [Automat ed message] code = 370) The system [employer] generated this result transmitted ref erence range: <=5.90. The reference range was not used to int erpret this result as normal/abnormal . RECOMMENDED COUMADIN/WARFARIN INR THERAPY RANGESSTANDARD DOSE: 2.0 - 3.0 Includes: PROPHYLAXIS forvenous thrombosis, systemic embolization; TREATMENT for venous thrombosis and/or pulmonary embolus.HIGH RISK: Target INR is 2.5-3.5 for patients with mechanical heart valves.CBC W/PLT COUNT & AUTO DIFFERENTIAL 2021-01-20 08:19:23 Test Item Value Reference Range Interpretation Comments WHITE BLOOD CELL COUNT (BEAKER) 7.4 K/ L 3.5-10.5 (test code = 775) RED BLOOD CELL COUNT (BEAKER) 3.10 M/ L 3.93-5.22 L (test code = 761) HEMOGLOBIN (BEAKER) (test code = 8.2 GM/DL 11.2-15.7 L 410) HEMATOCRIT (BEAKER) (test code = 26.5 % 34.1-44.9 L 411) MEAN CORPUSCULAR VOLUME (BEAKER) 85.5 fL 79.4-94.8 (test code = 753) MEAN CORPUSCULAR HEMOGLOBIN 26.5 pg 25.6-32.2 (BEAKER) (test code = 751) MEAN CORPUSCULAR HEMOGLOBIN CONC 30.9 GM/DL 32.2-35.5 L (BEAKER) (test code = 752) RED CELL DISTRIBUTION WIDTH 17.0 % 11.7-14.4 H (BEAKER) (test code = 412) PLATELET COUNT (BEAKER) (test 265 K/CU MM 150-450 code = 756) MEAN PLATELET VOLUME (BEAKER) 9.0 fL 9.4-12.3 L (test code = 754) NUCLEATED RED BLOOD CELLS 0 /100 WBC 0-0 (BEAKER) (test code = 413) NEUTROPHILS RELATIVE PERCENT 63 % (BEAKER) (test code = 429) LYMPHOCYTES RELATIVE PERCENT 26 % (BEAKER) (test code = 430) MONOCYTES RELATIVE PERCENT 10 % (BEAKER) (test code = 431) EOSINOPHILS RELATIVE PERCENT 1 % (BEAKER) (test code = 432) BASOPHILS RELATIVE PERCENT 0 % (BEAKER) (test code = 437) NEUTROPHILS ABSOLUTE COUNT 4.63 K/ L 1.56-6.13 (BEAKER) (test code = 670) LYMPHOCYTES ABSOLUTE COUNT 1.88 K/ L 1.18-3.74 (BEAKER) (test code = 414) MONOCYTES ABSOLUTE COUNT (BEAKER) 0.72 K/ L 0.24-0.36 H (test code = 415) EOSINOPHILS ABSOLUTE COUNT 0.09 K/ L 0.04-0.36 (BEAKER) (test code = 416) BASOPHILS ABSOLUTE COUNT (BEAKER) 0.03 K/ L 0.01-0.08 (test code = 417) IMMATURE GRANULOCYTES-RELATIVE 0 % 0-1 PERCENT (BEAKER) (test code = 2801) URINE [id number] 09:23:00 Test Item Value Reference Range Interpretation Comments Isolate 1 (test code = ISO1) Escherichia coli A ampicillin (test code = am) ug/mL S ampicillin/sulbactam (test ug/mL S code = ams) piperacillin/tazobactam ug/mL S (test code = tzp) cefazolin (test code = cz) ug/mL S ceftazidime (test code = ug/mL S brenda) ceftriaxone1 (test code = ug/mL S ctr) cefepime (test code = fep) ug/mL S aztreonam (test code = azm) ug/mL S ertapenem (test code = etp) ug/mL S meropenem (test code = mem) ug/mL S gentamicin (test code = gm) ug/mL S tobramycin (test code = tob) ug/mL S levofloxacin (test code = ug/mL S lev) trimethoprim/sulfamethoxazol ug/mL S e (test code = sxt) LIVER [id number] 04:51:00 Test Item Value Reference Range Interpretation [...] (test code = 31A) 14 IU/L <=78 [id number] 04:49:00 Test Item Value Reference Range Interpretation Comments ACETAMINPH (test code = 94M) <2.0 ug/mL 10.0-30.0 L ALCOHOL BLOOD (ETOH)2016-11-06 04:44:00 Test Item Value Reference Range Interpretation Comments ALCOHOL (test code = <10 mg/dL <=10 56A) Ref Range Change (test Please note the code = REF RANGE) change in reference range CARDIAC [id number] 04:43:00 Test Item Value Reference Range Interpretation Comments TROPONIN I (test code = A84) <0.015 ng/mL 0.000-0.045 CKMB (test code = A49) <1.0 ng/mL <=3.6 CPK (test code = 32A) 78 IU/L 26-192 DRUGS OF [id number] 04:39:00 Test Item Value Reference Range Interpretation [...] 200 ng/mL Opiates 2000 ng/mL BASIC METABOLIC [id number] 04:39:00 Test Item Value Reference Range Interpretation [...] = 09D) 9.2 mg/dL 8.3-9.5 URINALYSIS WITH [id number] 04:37:00 Test Item Value Reference Range Interpretation [...] UR (test code = USPERM) /HPF NONE [id number] 04:37:00 Test Item Value Reference Range Interpretation Comments SALICYLATE (test code = 94B) 5.6 mg/dL 2.8-20.0 PRO TIME AND [id number] 04:28:00 Test Item Value Reference Range Interpretation [...]
== END 2021-08-09 15:52 | disposition home or self-care (01) | DRG 193 ==
LOC: ER 03:45 → ERHOLD 05:51 → OBSVTOIN 11:06 → 2ND 16:06
PROVIDERS: ADMIT Internal Medicine; ATTEND Internal Medicine
DX: J18.9 Pneumonia, unspecified organism (principal); J96.01 Acute respiratory failure with hypoxia; J44.0 Chronic obstructive pulmonary disease with (acute) lower respiratory infection; J44.1 Chronic obstructive pulmonary disease with (acute) exacerbation; N17.9 Acute kidney failure, unspecified; R64 Cachexia; Z68.1 Body mass index [BMI] 19.9 or less, adult; J90 Pleural effusion, not elsewhere classified; I12.9 Hypertensive chronic kidney disease with stage 1 through stage 4 chronic kidney disease, or unspecified chronic kidney disease; N18.30 Chronic kidney disease, stage 3 unspecified; F31.9 Bipolar disorder, unspecified; F17.210 Nicotine dependence, cigarettes, uncomplicated; W06.XXXA Fall from bed, initial encounter; Y92.230 Patient room in hospital as the place of occurrence of the external cause; Z40.09 Encounter for prophylactic removal of other organ; Z90.10 Acquired absence of unspecified breast and nipple; Z85.118 Personal history of other malignant neoplasm of bronchus and lung; Z85.3 Personal history of malignant neoplasm of breast; Z20.822 Contact with and (suspected) exposure to COVID-19; Z95.0 Presence of cardiac pacemaker
CPT/HCPCS: 36415; 71045; 80048; 80053; 84132; 84484; 85025; 93005; 94640; 94660; 94760; 96374; 99285; G0378; J0360; J1650; J1940; J2270; J2930; J7512; U0003